=== PATIENT | female | born 1935 | race Caucasian/White ===

== ENCOUNTER 2018-07-26 09:27 | Inpatient (IN) ==
[2018-07-26 11:06] LABS: BASO# 0.01 X1000 (0.0-0.2); BASO% 0.1 % (0.0-0.8); HEMATOCRIT 40.2 % (37.0-47.0); HEMOGLOBIN 13.4 g/dL (12.0-16.0); IMM GRAN# 0.09 X1000 (0.0-0.04); IMM GRAN% 0.5 % (0.0-0.5); LYMPH# 0.29 X1000 (1.2-3.4); LYMPH% 1.7 % (20.5-51.1); MCH 33.6 PG (27-31); MCHC 33.3 g/dL (33-37); MCV 100.8 FL (81-99); MONO# 1.21 X1000 (0.11-0.59); MONO% 7.3 % (1.7-9.3); MPV 12.7 FL (7.4-10.4); NEUT# 15.08 X1000 (1.4-6.5); NEUT% 90.4 % (42.2-75.2); PLT 132 X1000 (130-400); RBC 3.99 XMIL (4.2-5.4); RDW 13.2 % (11.5-14.5); WBC 16.68 X1000 (4.8-10.8)
[2018-07-26 11:17] LABS: ALBUMIN 2.7 g/dL (3.5-5.0); CREATININE 1.7 mg/dL (0.5-0.9); POTASSIUM 4.7 mmol/L (3.5-5.1); TOTAL BILIRUBIN 0.8 mg/dL (0.20-1.00); TOTAL PROTEIN 6.4 g/dL (6.3-8.3)
[2018-07-26 11:52] LABS: LYMPHS 6 % (21-51); MONO 6 % (1-9); SEGS 88 % (42-75)
[2018-07-26] MEDS ORDERED: NS 1,000 ML IV ONE (12:10)
--- NOTE | 2018-07-26 12:27 | PROVIDER DOCUMENTATION ---
This chart was entered by Kathy Iniguez Scribe, acting as scribe for Elaine Euceda CRNP. HPI-General Adult - General Source: patient - History of Present Illness -Gen Adult Nature of Presenting Problems: 82 y/o female presents to ED with malaise, confusion, weakness, and AMS onset yesterday. Pt complains of R hip pain, but points to RLQ rather than hip. Family of pt reports she has not been drinking. Pt is alert and oriented. Location of Pain/Injury: reports: abdomen Pain Radiation: reports: no radiation Quality of Pain: reports: aching Severity: reports: moderate Onset/Duration: reports: 24 hours ago Timing: reports: still present Context/Activities at Onset: reports: none Modifying Factors: worse with: palpation Associated Symptoms: reports: malaise, weakness, other (abdominal pain, confusion, AMS) Similar Symptoms Previously?: No Recently seen or treated by another doctor?: No <Elaine Euceda - Last Filed: 07/26/18 12:26> <Mirza Wells - Last Filed: 07/26/18 21:28> - General Chief Complaint: General Adult Stated Complaint: MALAISE Time Seen by Provider: 07/26/18 11:49 Allergies/Adverse Reactions: Patient Allergies Allergy/AdvReac Type Severity Reaction Status Date / Time oxycodone HCl * Allergy Intermediate Unknown Verified 07/26/18 13:49 [From OxyContin] Home Medications: Home Medication List Medication Instructions Recorded Confirmed Last Taken Type Citalopram [Celexa] 10 mg PO DAILY 05/29/12 07/26/18 12/20/15 History PRAVAstatin [Pravachol] 40 mg PO HS 05/29/12 07/26/18 12/20/15 History Trazodone [Desyrel] 50 mg PO QHS 05/29/12 07/26/18 12/20/15 History Nateglinide [Starlix] 120 mg PO BID 09/13/15 07/26/18 12/20/15 History Memantine HCl [Namenda] 5 mg PO BID 12/20/15 07/26/18 12/20/15 History Acetaminophen with Codeine 1 ea PO Q6H PRN PRN #30 tab 07/23/18 07/26/18 Unknown Rx [Tylenol with Codeine #3 Tablet] Apixaban [Eliquis] 1 tab PO BID 07/26/18 07/26/18 Unknown History Buspirone HCl 1 tab PO BID 07/26/18 07/26/18 Unknown History Diltiazem HCl [Diltiazem ER] 1 cap PO DAILY 07/26/18 07/26/18 Unknown History Latanoprost 1 drop ORDERED HS 07/26/18 07/26/18 Unknown History Review of Systems - Adult - REVIEW OF SYSTEMS - ADULT Constitutional: reports: other (malaise, confusion, AMS). denies: chills, fever Eyes: reports: no symptoms reported Ears, Nose, Mouth & Throat: reports: no symptoms reported Cardiovascular: denies: chest pain, palpitations Respiratory: denies: cough, shortness of breath Gastrointestinal: reports: abdominal pain. denies: diarrhea, nausea, vomiting Genitourinary: reports: no symptoms reported Musculoskeletal: denies: back pain, joint pain Integumentary: reports: no symptoms reported Neurological: reports: other (weakness). denies: dizziness/vertigo, seizure Psychiatric: reports: no symptoms reported Endocrine: reports: no symptoms reported Hematologic/Lymphatic: reports: no symptoms reported Allergic/Immunologic: reports: no symptoms reported All Other Systems: Reviewed and Negative <Elaine Euceda - Last Filed: 07/26/18 12:26> Past History - Adult - PAST MEDICAL HISTORY-ADULT Review of Records: reports: Old Records Reviewed, Nursing Assessment Review, Medications Reviewed Major Childhood Illnesses: reports: denies history Cardiovascular: reports: HTN, murmur Respiratory: reports: denies history Gastrointestinal: reports: denies history Obstetrical/Gynecological: reports: other (vag delivery x 6) Genitourinary: reports: 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) Musculoskeletal: reports: denies history Neurological: reports: denies history, dementia Endocrine/Immune: reports: Diabetes, other (renal insufficiency) Other Conditions: reports: denies history - PRIOR SURGERIES/PROCEDURES Surgical/Procedure History: reports: none - IMMUNIZATION STATUS Childhood Immunizations: See Nurse Assessment Flu Vaccine: See Nurse Assessment - FAMILY HISTORY Family History: reviewed, not pertinent - SOCIAL HISTORY Smoking: quit greater than 1 year Substance Use: none/never Alcohol Use Frequency: never Living Situation: family <Elaine Euceda - Last Filed: 07/26/18 12:26> Physical Exam-General - PHYSICAL EXAM-ADULT Initial Vital Signs Reviewed: Yes - CONSTITUTIONAL General Appearance: appears well, alert, no apparent distress - EYES Eyes: PERRL/EOMI, pink conjunctivae - HEAD, EARS, NOSE, MOUTH & THROAT HENMT: normocephalic/atraumatic, moist mucous membranes, normal ENT inspection - NECK Neck: non-tender, full range of motion - RESPIRATORY Respiratory: chest non-tender, lungs clear, normal breath sounds - CARDIOVASCULAR Cardiovascular: other (irregular HR) - GASTROINTESTINAL (ABDOMEN) Abdominal Exam: normal bowel sounds, soft, tenderness (RLQ) - MUSCULOSKELETAL Back Exam: normal inspection, no CVA tenderness Extremity: normal range of motion, non-tender, normal gait - SKIN Integumentary: normal color, warm/dry - NEUROLOGIC Neurologic: grossly normal - PSYCHIATRIC Psych/Mental Status: normal mood/affect, normal thought content, normal thought process <Elaine Euceda - Last Filed: 07/26/18 12:26> - PSYCHIATRIC Psych/Mental Status: other (pt alert and oriented to self and place- hx of dementia) <Mirza Wells - Last Filed: 07/26/18 21:28> Progress - PLAN OF CARE/RESULTS Progress/Plan/Lab Results: Vital Signs - 8 hr 07/26/18 09:59 Temperature 98.6 F Pulse Rate 107 H Respiratory Rate 18 Blood Pressure 148/95 O2 Sat by Pulse Oximetry 95 Laboratory Results - last 24 hr 07/26/18 07/26/18 10:50 10:50 WBC 16.68 H RBC 3.99 L Hgb 13.4 Hct 40.2 MCV 100.8 H MCH 33.6 H MCHC 33.3 RDW Std Deviation 13.2 Plt Count 132 MPV 12.7 H Immature Gran % (Auto) 0.5 Neut % (Auto) 90.4 H Lymph % (Auto) 1.7 L [place] % (Auto) 7.3 Eos % (Auto) 0.0 Baso % (Auto) 0.1 Immature Gran # (Auto) 0.09 H Neut # (Auto) 15.08 H Lymph # (Auto) 0.29 L [place] # (Auto) 1.21 H Eos # (Auto) 0.00 Baso # (Auto) 0.01 Segmented Neutrophils 88 H Lymphocytes 6 L Monocytes 6 Sodium 133 L Potassium 4.7 Chloride 97 L Carbon Dioxide 25 Anion Gap 11 BUN 54 H Creatinine 1.7 H Estimated GFR/1.73 m2 29 BUN/Creatinine Ratio 32 Glucose 152 H Calculated Osmolality 284 Calcium 9.0 Total Bilirubin 0.80 AST 13 ALT 9 L Alkaline Phosphatase 51 Total Protein 6.4 Albumin 2.7 L Globulin 4.0 Albumin/Globulin Ratio 1.0 Orders Category Date Time Status Nursing- Obtain EKG once Care 07/26/18 11:52 Active CHEST-2 VIEWS [RAD] Stat Exams 07/26/18 11:52 Taken CBC WITH DIFF [HEME] Stat Lab 07/26/18 10:50 Completed COMPREHENSIVE METABOLIC PANEL [CHEM] Stat Lab 07/26/18 10:50 Completed TROPONIN T Stat Lab 07/26/18 10:[address] W/POSS RFLX CULT [URINALYSIS] Stat Lab 07/26/18 10:03 Uncollected 0.9% Sodium Chloride Inj [Ns] 1,000 ml Med 07/26/18 12:10 Active IV 250 mls/hr EKG [EKG] Stat Ther 07/26/18 11:52 Ordered Result Diagrams: 07/26/18 10:50 07/26/18 10:50 - CHANGE OF SHIFT REPORT (ED Provider) Report Given and Care Transferred to:: ALKA Keith Time of Transfer: 12:25 Items Pending: Labs, XRAY Results <Elaine Euceda - Last Filed: 07/26/18 12:26> - PLAN OF CARE/RESULTS Progress/Plan/Lab Results: Vital Signs - 8 hr 07/26/18 09:59 Temperature 98.6 F Pulse Rate 107 H Respiratory Rate 18 Blood Pressure 148/95 O2 Sat by Pulse Oximetry 95 Laboratory Results - last 24 hr 07/26/18 07/26/18 07/26/18 10:50 10:50 10:50 WBC 16.68 H RBC 3.99 L Hgb 13.4 Hct 40.2 MCV 100.8 H MCH 33.6 H MCHC 33.3 RDW Std Deviation 13.2 Plt Count 132 MPV 12.7 H Immature Gran % (Auto) 0.5 Neut % (Auto) 90.4 H Lymph % (Auto) 1.7 L [place] % (Auto) 7.3 Eos % (Auto) 0.0 Baso % (Auto) 0.1 Immature Gran # (Auto) 0.09 H Neut # (Auto) 15.08 H Lymph # (Auto) 0.29 L [place] # (Auto) 1.21 H Eos # (Auto) 0.00 Baso # (Auto) 0.01 Segmented Neutrophils 88 H Lymphocytes 6 L Monocytes 6 Sodium 133 L Potassium 4.7 Chloride 97 L Carbon Dioxide 25 Anion Gap 11 BUN 54 H Creatinine 1.7 H Estimated GFR/1.73 m2 29 BUN/Creatinine Ratio 32 Glucose 152 H Calculated Osmolality 284 Calcium 9.0 Total Bilirubin 0.80 AST 13 ALT 9 L Alkaline Phosphatase 51 Troponin T < 0.010 Total Protein 6.4 Albumin 2.7 L Globulin 4.0 Albumin/Globulin Ratio 1.0 Orders Category Date Time Status Nursing- Obtain EKG once Care 07/26/18 11:52 Active Saline Loc NOW Care 07/26/18 12:30 Active Straight Catheterization ORDERED Care 07/26/18 12:20 Active CHEST-2 VIEWS [RAD] Stat Exams 07/26/18 11:[address] ABDOMEN/PELVIS W/O CONTRAST [CT] Stat Exams 07/26/18 12:23 Ordered CBC WITH DIFF [HEME] Stat Lab 07/26/18 10:50 Completed COMPREHENSIVE METABOLIC PANEL [CHEM] Stat Lab 07/26/18 10:50 Completed TROPONIN T Stat Lab 07/26/18 10:[address] W/POSS RFLX CULT [URINALYSIS] Stat Lab 07/26/18 10:03 Uncollected 0.9% Sodium Chloride Inj [Ns] 1,000 ml Med 07/26/18 12:10 Active IV 250 mls/hr EKG [EKG] Stat Ther 07/26/18 11:52 Ordered Pt c/o right hip pain that radiates to back that has worsened since previous visit. Daughter of pt reports increased confusion and generalized weakness over the past 2 days. Pt is a&o and answers questions appropriately at this time- denies any recent fall/injury. Dr. Galeana saw and assessed pt- recommends Cardizem administration, sed rate, and reassessment after. Dr. Rob paged for admission consult at 1507. Spoke with Dr. Rob who requests head CT and states to order echo to be done in the ED if pt has not had one recently. Pt had an echo in February, will hold echo at this time and call Dr. Rob back when head CT results. Result Diagrams: 07/26/18 10:50 07/26/18 10:50 - REASSESSMENT Reassessment #1 Status: unchanged Reassessment #2 Time Reassessed: 15:30 (pt requests pain medicine) Status: unchanged - EKG 1 Time of EKG reading by physician:: 13:15 EKG Read and Signed by:: Osmar Galeana EKG Interpretation (*Must complete 3 of following elements*): Abnormal Rate: 104 Rhythm: Atrial Fibrillation with RVR - XRAY 1 XRAY Study: Chest ([facility] [address], [address], [place] [address] Department of Imaging Patient: SANDRA KRUEGER WADM Date: MR#: [id number] : 8ADM Status: PRE ERAcct#: [id number] Age/ Sex: 82/FRoom/Bed: Loc: P.ED Ordering Physician: Elaine Euceda Family Physician: Reason for Procedure: weakness elevated WBC Signed EXAM: CHEST-2 VIEWS HISTORY: weakness elevated WBC TECHNIQUE: Chest three views COMPARISON: 06/26/2017 FINDINGS: The lungs are well expanded. The heart is mildly enlarged. The vessels are not distended. There are no infiltrates. No pleural effusions. IMPRESSION: No pneumonia. Electronically signed by Nathan Bullock 07/26/2018 12:22 PM 07/26/18 1222 Interpreting Physician: Nathan Bullock MD Dictated Date/Time: 07/26/18 1222 cc: Elaine Euceda;) - CT/MRI 1 CT Study: Head ([facility] [address], [address], [place] [address] Department of Imaging Patient: SANDRA KRUEGER WADM Date: 09/12#: [id number] : 1935DM Status: REG [facility]#: [id number] Age/ Sex: 82/FRoom/Bed: Loc: P.ED Ordering Physician: Mirza Wells Family Physician: Blayne Rob MD Reason for Procedure: confusion, weakness Signed EXAM: CT HEAD W/O CONTRAST HISTORY: confusion, weakness TECHNIQUE: CT head without contrast COMPARISON: 12/20/2015 FINDINGS: No parenchymal hemorrhage. No epidural or subdural hematoma. No subarachnoid hemorrhage. Mild atrophy. No mass identified on this noncontrasted exam. No hydrocephalus. No sinus opacification. There is a 7 mm calcification along the anterior right parietal bone which was present on the prior exam and is unchanged. IMPRESSION: No hemorrhage. This exam was performed using automated exposure control, adjustment of mA or kV according to patient size, and/or use of iterative reconstruction technique. Electronically signed by Nathan Bullock 07/26/2018 5:45 PM 07/26/18 1748 Interpreting Physician: Nathan Bullock MD Dictated Date/Time: 07/26/18 1745 cc: Mirza Wells; Blayne Rob MD) - CONSULTS/PCP/HOSPITALIST Notification #1 *Consult/PCP/Hospitalist*: Dr. Rob Time Discussed: 16:13 Consult Disposition: Will see in ED, Admit <Mirza Wells - Last Filed: 07/26/18 21:28> Departure - Departure Date of Disposition Decision: 07/26/18 Time of Disposition Decision: 12:27 <Elaine Euceda - Last Filed: 07/26/18 12:26> - Departure Time of Disposition Decision: 16:13 Certified Medical Emergency: Emergent - Critical Care Note This patient required my direct & personal management of CC.: No <Mirza Wells - Last Filed: 07/26/18 21:28> - Departure DIAGNOSIS: Generalized weakness Disposition: ADMITTED INPATIENT 09 Condition: Stable Referrals and Follow-Ups: Blayne Rob MD [Primary Care Provider] - Attestation - Physician/ BOOKER Attestation Patient care was provided by Advanced Practice Provider:: Yes Advanced Practice Provider:: Elaine Euceda Advanced Practice Provider documentation review:: The Mid-level provider documentation, treatment plan and medical decision making was reviewed by the physician who agrees with all treatment and medical decision making by the MLP. The physician spent face to face time with patient:: No Advanced Practice Provider documentation review:: Supervising physician onsite and consulted in the evaluation and care of this patient. The physician did not have a face to face encounter with the patient. <Elaine Euceda - Last Filed: 07/26/18 12:26> - Physician/ BOOKER Attestation The physician spent face to face time with patient:: Yes (Dr. Galeana) Advanced Practice Provider documentation review:: Supervising physician onsite and consulted in the evaluation and care of this patient. The physician did have a face to face encounter with the patient. <Mirza Wells - Last Filed: 07/26/18 21:28> This chart was documented by the indicated scribe, (Kathy Iniguez Scribe) and accurately reflects the services I performed and decisions made by me, Elaine Euceda CRNP, as attested by the provider's signature.
--- NOTE | 2018-07-26 13:10 | Diag Imaging Result Doc PS360 ---
EXAM: CT ABDOMEN/PELVIS W/O CONTRAST 07/26/2018 HISTORY: rlq abd pain TECHNIQUE: This exam was performed using automated exposure control, adjustment of mA or kV according to patient size, and/or use of iterative reconstruction technique. COMMENT: The current examination is compared with the previous study of 05/09/2017. There is some platelike atelectasis in both lower lobes which is actually somewhat improved since the previous examination. There has been previous cholecystectomy. The adrenal glands are slightly hyperplastic in appearance. The spleen is not enlarged. There is extensive arteriosclerosis. There are dense calcifications in the proximal renal arteries and calcifications are present in the lobar arteries particularly on the left side. There is dense calcification in the superior mesenteric artery. There is some subcutaneous edema generally particularly over the left flank. There is stool and gas in the colon. The small bowel is not particularly distended. The common bile duct appears somewhat distended but there are no definite stones. This measures is much as 19 mm in diameter. Compared to the previous examination this is increased from 16 mm. The appendix is not distended. The urinary bladder is slightly distended which was not the case previously. There are no pelvic masses. There is diverticulosis particularly in the sigmoid colon no definite evidence of acute diverticulitis is present. There is no significant free fluid. IMPRESSION: Anasarca. Diverticulosis coli. Slightly distended urinary bladder. Mild constipation. Electronically signed by Ortiz Shelley 07/26/2018 1:08 PM
[2018-07-26 13:12] LABS: BILIRUBIN URINE NEGATIVE (NEGATIVE); BLOOD URINE 4+ (NEGATIVE); CLARITY SL. CLOUDY (CLEAR); GLUCOSE URINE NEGATIVE (NEGATIVE); KETONE URINE TRACE mg/dL (NEGATIVE); LEUKOCYTES URINE 2+ (NEGATIVE); NITRITE URINE NEGATIVE (NEGATIVE); PROTEIN URINE 2+(100 mg/dL) mg/dL (NEGATIVE); UROBILINOGEN URINE 4 mg/dL
[2018-07-26 13:20] LABS: COLOR AMBER; URINE BACTERIA 3+ /HFP; URINE EPITHELIAL CELLS >10 /HPF (<10); URINE RBC 20-40 /HPF (<10); URINE SOURCE CLEAN CATCH; URINE WBC 20-40 /HPF (<10)
[2018-07-26] MEDS ORDERED: CARDIZEM IV ONE (13:48)
[2018-07-26] MEDS ORDERED: ROCEPHIN 1 GM in NS 50 ML IV ONE (13:48)
--- NOTE | 2018-07-26 14:03 | EKG Report ---
Test Performed on : 07/26/2018 1:13:37 PM Test Reason : CP Blood Pressure : / mmHG Vent. Rate : 104 BPM Atrial Rate : 113 BPM P-R Int : 000 ms QRS Dur : 078 ms QT Int : 336 ms P-R-T Axes : 000 026 062 degrees QTc Int : 441 ms Atrial fibrillation. with rapid ventricular response. Cannot rule out Anterior infarct , age undetermined Abnormal ECG When compared with ECG of 13-JUN-2018 09:43, (Unconfirmed) Nonspecific T wave abnormality, improved in Inferior leads Unconfirmed Result
[2018-07-26] MEDS ORDERED: MORPHINE IV ONE (15:35)
[2018-07-26] MEDS ORDERED: ZOFRAN IV ONE (15:35)
--- NOTE | 2018-07-26 17:48 | Diag Imaging Result Doc PS360 ---
EXAM: CT HEAD W/O CONTRAST HISTORY: confusion,weakness TECHNIQUE: CT head without contrast COMPARISON: 12/20/2015 FINDINGS: No parenchymal hemorrhage. No epidural or subdural hematoma. No subarachnoid hemorrhage. Mild atrophy. No mass identified on this noncontrasted exam. No hydrocephalus. No sinus opacification. There is a 7 mm calcification along the anterior right parietal bone which was present on the prior exam and is unchanged. IMPRESSION: No hemorrhage. This exam was performed using automated exposure control, adjustment of mA or kV according to patient size, and/or use of iterative reconstruction technique. Electronically signed by Nathan Bullock 07/26/2018 5:45 PM
[2018-07-26 19:47] LABS: BILIRUBIN URINE NEGATIVE (NEGATIVE); BLOOD URINE 2+ (NEGATIVE); CLARITY SL. CLOUDY (CLEAR); COLOR AMBER; GLUCOSE URINE NEGATIVE (NEGATIVE); KETONE URINE TRACE mg/dL (NEGATIVE); LEUKOCYTES URINE NEGATIVE (NEGATIVE); NITRITE URINE NEGATIVE (NEGATIVE); PROTEIN URINE 2+(100 mg/dL) mg/dL (NEGATIVE); URINE SOURCE CATH; UROBILINOGEN URINE 1 mg/dL
[2018-07-26 19:48] LABS: URINE BACTERIA NEGATIVE /HFP; URINE EPITHELIAL CELLS <10 /HPF (<10); URINE RBC <10 /HPF (<10); URINE WBC <10 /HPF (<10)
[2018-07-26 19:49] LABS: URINE CAST NONE SEEN /LPF; URINE CRYSTAL NONE SEEN /HPF; URINE YEAST NONE SEEN /HPF
[2018-07-26] MEDS ORDERED: TYLENOL WITH CODEINE #3 PO ONE (20:46)
[2018-07-26] MEDS ORDERED: NS 2,000 ML IV ONE (20:47)
[2018-07-26] MEDS ORDERED: NS 1,000 ML ONE (21:18)
[2018-07-27] MEDS ORDERED: TYLENOL PO PRN (01:10)
--- NOTE | 2018-07-27 14:35 | HISTORY AND PHYSICAL ---
HISTORY OF PRESENT ILLNESS: The patient is an 82-year-old female who presented to the emergency room complaining of malaise, confusion, weakness, altered mental status, mostly the complaints are family. She has been complaining of hip pain and points to her right lower quadrant. She had this the day prior, came to the ER, had a CT of the pelvis and hip, and they were negative other than significant degenerative arthritis of the lumbar spine, which could contribute to her problems with the pain in those areas that she describes, her lower abdomen and her back. She describes it as an aching, it has been going on at least 24 hours, no injuries. She is just generally malaised, weak, and has seemingly per family been more confused than usual, which is new for her. In the ER, she was evaluated and subsequently admitted. ALLERGIES: She has a history of allergy to oxycodone. HOME MEDICATIONS: Celexa 10 for depression, pravastatin 40 for dyslipidemia, trazodone 50 for sleep, Starlix which she has been taking for a while 120 b.i.d. controlling her sugar, Namenda for the mild dementia 5 mg b.i.d., she takes p.r.n. Tylenol with codeine, she is on Eliquis 1 tablet p.o. b.i.d., buspirone 1 tablet b.i.d., diltiazem 1 capsule daily, and some eye drops. REVIEW OF SYSTEMS: The patient just generally denies fever or chills. She has been somewhat confused and altered with malaise. We postulate this may be from steroids that were given the other day for the pain in her lower back and right hip. Eyes: No change in her visual acuity, no irritation, no drainage, no change in visual kaba. Ears, nose, and throat: Denies pharyngitis, otitis, or sinusitis. Cardiovascular: She denies chest pain, palpitations, has some edema, no PND, orthopnea, claudication, exertional dyspnea. Respiratory: Denies cough, shortness of breath. No hemoptysis. No significant amount of phlegm. Gastrointestinal: She just has diarrhea unassociated with nausea, vomiting, melena, hematochezia. Genitourinary: No dysuria, polyuria, or pyuria. She has had some UTIs in the past. Musculoskeletal: Low back pain, the only problem. Skin: No particular rashes or lesions. Neurologic: she is generally weak and a little bit confused per family. Psychiatric: No hallucinations. No SI, HI issues. Endo: No polyuria or polydipsia, polyphagia. Hematological/lymphatic: She is on a blood thinner but denies any history of bleeding from the same. Allergies: No history of asthma. PAST MEDICAL HISTORY: Surgically, she has had no procedures. Cardiovascular past medical history: She has a history of hypertension and murmur. Respiratory: Denies any history of respiratory problems, COPD, and asthma. Gastrointestinal: Denies any history of significant bleeding, ulcer disease, diverticular disease, reflux disease. No liver disease. INVENTORY CONTROL COORDINATOR: Six deliveries. Genitourinary: She has some issues with her kidneys that have been attributed to diabetes. Musculoskeletal: Negative neuromuscular. History of dementia. Endo: She has some mild renal insufficiency. FAMILY HISTORY: Not pertinent. She is a distant exsmoker. Never drinks. No substance abuse. PHYSICAL EXAMINATION: HEENT: On admission head was normocephalic. She was alert, oriented, and paid attention and recognized me. Eyes: PERRL. EOMs intact. SC clear. Fundi benign. Nares patent. Oropharynx negative. NECK: Midline trachea. No lymphadenopathy. Neck is supple. No thyromegaly. RESPIRATORY: Chest wall is nontender. Lungs are generally clear, bilateral breath sounds. CARDIOVASCULAR: She had an irregular heart rate and rhythm, faint 1/6 murmur. ABDOMEN: Protuberant, normal bowel sounds, and some tenderness in the right lower quadrant. MUSCULOSKELETAL: No CVA tenderness. Normal inspection. EXTREMITIES: Normal range of motion. Nontender. Normal gait. SKIN: Warm and dry, no lesions. NEUROLOGIC: No focal neurologic deficits. PSYCHIATRIC: Normal mood and affect. Normal thought content. Normal thought process. The patient was alert and oriented to self and place, in spite of her history of dementia. VITAL SIGNS: On admission her temperature was 98.6. Pulse 107. Respiratory rate 18. BP 148/95. LABORATORY: On admission: White count 16,680, she got steroids in the last couple of days, so I am sure that is what is going on there, her hematocrit is 40.2, MCV is a little big, platelet count 132,000. Her differential was left shift as you would expect with steroids, her lymphocyte count was only 1.7, so I am sure that is what is going on there. Sodium 133, potassium 4.7, chloride 97, CO2 25, BUN 54, creatinine 1.7, some prerenal dehydration perhaps. Her estimated GFR was 29. Glucose 152. LFTs were normal. Albumin 2.7, total protein 6.4. She got saline at 250 mL per hour, brought on by her BUN to creatinine ratio. She ended up having a CT of the abdomen and pelvis. The family thinks she cannot walk very well and is a little bit confused. EKG was abnormal, she had atrial fibrillation with suspected rapid ventricular rate. Chest x-ray: There are no infiltrates, no pleural effusions, no pneumonia. She had a CT of the head: No hemorrhage, there was no subarachnoid hemorrhage, mild atrophy, no mass identified on this noncontrasted exam, no hydrocephalus, no sinus issues. In the past, on the scan of the belly they saw some anasarca, in the past she has had some pericardial effusions that were an issue. So, she was admitted to the hospital. Her medication list has been described previously. She was given Zofran, she was given Tylenol, she got 2 liters of sodium chloride, codeine, she was placed on ceftriaxone 1 gram, diltiazem 10 IV initially for rapid heart rate. She was given morphine 2 IV. Her reports not included so far are the abdomen and pelvis and the exam was read as anasarca, diverticulosis coli, slightly distended urinary bladder, mild constipation. Previous scan of her abdomen did not show anything significant. Compared this exam to 05/09/2017 exam, which showed some plate like atelectasis in both lower lobes, that actually is improved since the previous exam, status post cholecystectomy, hyperplastic adrenal gland in appearance, spleen not enlarged, there is extensive atherosclerosis, dense calcifications proximal renal arteries , and calcification present in the lobar arteries, particularly on the left side, small bowel is not particularly distended, bowel duct appears somewhat distended, there are no definite stones, it measures 19 mm in diameter, compared to the previous exam, this is increased from 16 mm, the appendix is not distended, urine bladder slightly distended, this was not the case previously, there are no pelvic masses, there is diverticulosis in the sigmoid colon, but no definite acute diverticula. She got some medicine in the ER, some ceftriaxone, and was admitted upstairs, and we will watch her. She has a history of chronic obstructive pulmonary disease. She has a history of dyslipidemia. She has had problems with chronic obstructive pulmonary disease and shortness of breath and obesity, chronic venous disease as well. Her current medicines as best we can tell from our data shows she is on BuSpar 10 b.i.d., Cartia 120 daily, Eliquis 2.5 one b.i.d. we will have to clarify that, she has Lexapro 10, Namenda 10, Starlix 120 b.i.d., p.r.n. q.6-8, albuterol ipratropium breathing treatments 4 times a day p.r.n., pravastatin 40, and trazodone 50. She is status post cholecystectomy, left knee replacement, right knee replacement, bilateral wrist surgery, eye surgery x3, cataract removal with intraocular lens bilaterally. MEDICAL PROBLEMS: 1. Lipid disorder. 2. Type 2 diabetes. 3. Acute renal failure and renal insufficiency. 4. History of anemia. 5. Restless leg syndrome. 6. Both her sons have had head and neck cancers. cc: Blayne Rob MD MTDD
--- NOTE | 2018-07-27 15:36 | ECHO REPORT ---
ORDER DATE: 07/27/2018 ECHOCARDIOGRAM: ECHOCARDIOGRAPHIC MEASUREMENTS: 1. Interventricular septum 1.3. 2. Left ventricular posterior wall 1.3. 3. Diastolic diameter 3.4. 4. Left atrium 4.8. 5. Aorta 3.1 SUMMARY: 1. Technically suboptimal study. Poor acoustic window. 2. There is moderate biatrial enlargement. 3. Normal left ventricular cavity size. Concentric left ventricular hypertrophy. Estimated ejection fraction of 65%. 4. Aortic valve leaflets are calcified. Tricuspid valve was normal. Mitral valve was normal. Pulmonic valve was normal. 5. The peak velocity across the aortic valve was 2.3 m/sec. There is mild aortic stenosis with mild aortic regurgitation. 6. There is mitral regurgitation which is mild. 7. Mild tricuspid regurgitation. Peak velocity across the tricuspid valve was 3 m/sec. Pulmonary artery systolic pressure of 50 mmHg. 8. There is mainly posterior pericardial effusion measuring 1.5 cm anteriorly. There is trace pericardial effusion. There is no evidence of tamponade. There is no obvious intracardiac mass or thrombus seen. cc: MD Blayne Bain MD
[2018-07-27] MEDS ORDERED: LASIX IV ONE (20:08)
[2018-07-27] MEDS ORDERED: PRAVACHOL PO SCH (21:00)
[2018-07-27] MEDS ORDERED: DESYREL PO SCH (21:30)
[2018-07-27] MEDS: ELIQUIS PO SCH (22:18)
--- NOTE | 2018-07-28 05:18 | CARDIOLOGY CONSULTATION ---
DATE: 07/27/2018 CHIEF COMPLAINT ON PRESENTATION: Diffuse weakness and back pain. HISTORY OF PRESENT ILLNESS: Ms. Allen is an 82-year-old female with a history of chronic pericardial effusion. She presented with a generalized malaise and weakness that has been ongoing since Tuesday. Apparently Tuesday, she was in her usual state of health and able to get around with a walker. On Tuesday, she woke up and just was diffusely weak in her upper and lower extremities. No shortness of breath. No orthopnea. She denies any overt syncope. In addition, she has had some generalized nausea and has had very little oral intake recently. She was taken to the ER on Tuesday with complaints of back pain and was treated for that and sent home. She has really had no improvement since then and re-presented for further evaluation. PAST MEDICAL HISTORY: Significant for: 1. Hypertension. 2. Chronic pericardial effusion as far back as May 2017. 3. Atrial fibrillation. 4. Hyperlipidemia. 5. Diabetes. SOCIAL HISTORY: She lives with family. She does not currently smoke. FAMILY HISTORY: Hypertension. REVIEW OF SYSTEMS: A 10-system review of systems is negative except for those things mentioned in the HPI. PHYSICAL EXAMINATION: Vital Signs: She is afebrile. Heart rate 84, blood pressure 150/73. Systolics during this hospitalization have been anywhere from the 120s to the once 170s or so. General: She is in no acute distress. She is lying in bed. She is not complaining of any shortness of breath. She is currently eating yogurt. HEENT: Oropharynx moist. Poor dentition. Eye examination shows pink conjunctivae and white sclerae. Neck: Examination shows no obvious thyromegaly or thyroid tenderness. Cardiovascular: She sounds to be in a mildly irregular rhythm. There are no obvious murmurs present. She has warm and well perfused extremities. Again, no edema. Chest: Exam sounds relatively clear, but is a somewhat difficult exam. She has poor inspiratory effort. Abdomen: Soft, nontender. No obvious organomegaly. Skin: Exam is warm and dry throughout without any rashes. Neurological: She is moving all extremities well. She has no lateralizing deficits. Psychiatric: She is alert, oriented, and pleasant. She has a normal mood and affect. PERTINENT DATA: The patient's EKG shows sinus rhythm, rate of 104 beats per minute. She had an echocardiogram, which demonstrated an ejection fraction of 65%. Mild aortic stenosis. Mild left ventricular hypertrophy. Mild mitral regurgitation. Pericardial effusion noted with no evidence of any tamponade features. She had an abdomen and pelvis CT demonstrating anasarca and slight distended urinary bladder. LABORATORY DATA: White count 16.6, hematocrit 40, platelet count 132,000. She has a left shift. Sodium 133, potassium 4.7, BUN 54, creatinine 1.7. Albumin is 2.7. Urinalysis shows 2+ blood, 2+ protein, less than 10 WBCs, no bacteria. ASSESSMENT: Ms. Allen is an 82-year-old female who presented with a generalized failure to thrive over the last 4 to 5 days. She has chronic atrial fibrillation. PLAN: Presently, her effusion does not seem to be any worse than it has been in the past. Certainly, there do not appear to be any sort of tamponade type features. Her echo certainly seems consistent with what she has had in the past. Her RV systolic pressure in February was 92, suggesting severe pulmonary hypertension. It was measured at 50, at the time of this echo. Certainly, we could consider performing some diuresis as she is noted to have anasarca on her abdomen and pelvis CT. She has a notable significant hypoalbuminemia. I will try giving her a 1- time dose of Lasix at 40 mg IV and discussed the case with Dr. Rob. cc: MD Blayne Collins MD
[2018-07-28 07:45] LABS: BASO# 0.02 X1000 (0.0-0.2); BASO% 0.1 % (0.0-0.8); CALCIUM 8.5 mg/dL (8.8-10.2); CREATININE 1.2 mg/dL (0.5-0.9); EOS# 0.01 X1000 (0.0-0.7); EOS% 0.1 % (0.0-10.0); HEMATOCRIT 42.8 % (37.0-47.0); HEMOGLOBIN 14.3 g/dL (12.0-16.0); IMM GRAN# 0.08 X1000 (0.0-0.04); IMM GRAN% 0.5 % (0.0-0.5); LYMPH# 0.33 X1000 (1.2-3.4); LYMPH% 2.1 % (20.5-51.1); MCH 32.8 PG (27-31); MCHC 33.4 g/dL (33-37); MCV 98.2 FL (81-99); MONO# 1.29 X1000 (0.11-0.59); MONO% 8.2 % (1.7-9.3); MPV 12.7 FL (7.4-10.4); NEUT# 13.93 X1000 (1.4-6.5); PLT 121 X1000 (130-400); POTASSIUM 4.1 mmol/L (3.5-5.1); RBC 4.36 XMIL (4.2-5.4); RDW 12.9 % (11.5-14.5); WBC 15.66 X1000 (4.8-10.8)
[2018-07-28 08:03] LABS: BANDS 2 % (0-1); LYMPHS 1 % (21-51); MONO 4 % (1-9); SEGS 93 % (42-75)
[2018-07-28] MEDS: CELEXA PO SCH (08:07)
[2018-07-28] MEDS: ELIQUIS PO SCH ×2 (08:07→20:43)
[2018-07-28] MEDS: CARDIZEM CD PO SCH (08:07)
[2018-07-28] MEDS: STARLIX PO SCH ×2 (08:09→17:04)
[2018-07-28] MEDS: LASIX IV SCH (13:17)
[2018-07-28] MEDS ORDERED: LEVAQUIN 500 MG in NS 100 ML IV SCH (16:30)
[2018-07-28 16:33] LABS: BLOOD TYPE ARTERIAL; HCO3-(ACT) 26.4 mmoll (20.0-26.0); METHB 1.2 % (0.0-1.5); O2(CT) 18.9 mL/dL (15.0-23.0); O2HB 94.4 % (95.0-99.0); PCO2(98.6) 36 mmHg (35-45); PO2(98.6) 83 mmHg (60-100); SAMPLE BLOOD; SAO2 97.5 % (95.0-100.0); THB 14.2 g/dL (11.5-17.4); pH(98.6) 7.46 (7.35-7.45)
[2018-07-28 16:36] LABS: MODALITY CANNULA
[2018-07-28] MEDS: XALATAN 0.005% OPH SOLN BOTH EYES SCH (20:43)
[2018-07-28] MEDS ORDERED: ELIQUIS PO SCH (21:00)
--- NOTE | 2018-07-29 06:25 | EKG Report ---
Test Performed on : 07/29/2018 05:46:48 AM Test Reason : ROUTINE Blood Pressure : / mmHG Vent. Rate : 110 BPM Atrial Rate : 136 BPM P-R Int : 000 ms QRS Dur : 082 ms QT Int : 346 ms P-R-T Axes : 000 011 047 degrees QTc Int : 468 ms Atrial fibrillation. with rapid ventricular response. Cannot rule out Anterior infarct (cited on or before 26-JUL-2018) Abnormal ECG When compared with ECG of 26-JUL-2018 13:13, (Unconfirmed) No significant change was found Confirmed by Blayne Rob MD ([id number]) on 07/30/2018 8:10:40 AM
[2018-07-29 07:12] LABS: CALCIUM 8.6 mg/dL (8.8-10.2); MAGNESIUM 1.7 mg/dL (1.5-2.7); POTASSIUM 3.6 mmol/L (3.5-5.1)
[2018-07-29] MEDS: LASIX IV SCH (08:12)
[2018-07-29] MEDS: CELEXA PO SCH (08:13)
[2018-07-29] MEDS: CARDIZEM CD PO SCH (08:13)
[2018-07-29] MEDS: ELIQUIS PO SCH ×2 (08:13→22:40)
[2018-07-29] MEDS: STARLIX PO SCH ×2 (08:15→17:20)
[2018-07-29] MEDS: DUONEB (A & A) INH PRN ×3 (12:32→20:56)
[2018-07-29 12:37] LABS: HEMATOCRIT 40.6 % (37.0-47.0); HEMOGLOBIN 13.7 g/dL (12.0-16.0); MCH 33.2 PG (27-31); MCHC 33.7 g/dL (33-37); MCV 98.3 FL (81-99); MPV 12.6 FL (7.4-10.4); RBC 4.13 XMIL (4.2-5.4); RDW 12.9 % (11.5-14.5); WBC 15.83 X1000 (4.8-10.8)
--- NOTE | 2018-07-29 12:39 | Diag Imaging Result Doc PS360 ---
EXAM: CHEST-PORTABLE 07/29/2018 HISTORY: labored breathing TECHNIQUE: AP portable at 1224 COMMENT: There is atelectasis in the left upper lobe which was not present on 07/26/2018. Otherwise there has been no significant change. IMPRESSION: Platelike atelectasis in the left upper lobe. Electronically signed by Ortiz Shelley 07/29/2018 12:37 PM
[2018-07-29 12:54] LABS: ALBUMIN 1.8 g/dL (3.5-5.0); CALCIUM 8.6 mg/dL (8.8-10.2); CREATININE 1.2 mg/dL (0.5-0.9); POTASSIUM 3.6 mmol/L (3.5-5.1); TOTAL BILIRUBIN 0.7 mg/dL (0.20-1.00); TOTAL PROTEIN 5.4 g/dL (6.3-8.3)
--- NOTE | 2018-07-29 13:18 | EKG Report ---
Test Performed on : 07/29/2018 12:18:32 PM Test Reason : labored breathing Blood Pressure : / mmHG Vent. Rate : 092 BPM Atrial Rate : 136 BPM P-R Int : 000 ms QRS Dur : 084 ms QT Int : 364 ms P-R-T Axes : 000 098 030 degrees QTc Int : 450 ms Atrial fibrillation. Rightward axis Possible Anterior infarct (cited on or before 26-JUL-2018) Abnormal ECG When compared with ECG of 29-JUL-2018 05:46, (Unconfirmed) Questionable change in QRS axis Confirmed by Blayne Rob MD ([id number]) on 07/30/2018 8:10:23 AM
[2018-07-29] MEDS ORDERED: DUONEB (A & A) INH ONE (13:23)
[2018-07-29 13:36] LABS: CREATININE 1.2 mg/dL (0.7-1.2)
[2018-07-29 13:49] LABS: UR CREATININE 30.7 mg/dL (11-20); UR CREATININE TOTAL 675.4 mg/24 (600-1600); UR PROTEIN 35.3 mg/dL
[2018-07-29] MEDS: ZOSYN 3.375 GM in NS 50 ML IV SCH ×2 (17:19→22:39)
--- NOTE | 2018-07-29 17:22 | PROGRESS NOTE ---
DATE: 07/29/2018 SUBJECTIVE: This is an 82-year-old lady admitted with failure to thrive. She is still in bed. She is not speaking very much. Sleeping. Breathing kind of quickly. OBJECTIVE: Vital Signs: She is afebrile. Temperature is 99 axillary. Pulse is 97, respiratory rate 18, blood pressure 149/78, O2 saturation 100%. Cardiovascular: She does not appear to have much fluid. Abdomen: Her belly is soft. Extremities: Negative. LABORATORY DATA: On July 28, she had a white count of 15,660. I still think it is secondary to steroids. Her hematocrit was 42.8. Platelet count was 121. She also had a sodium of 132, potassium of 4.1, chloride of 98. CO2 was 23, BUN 44, creatinine 1.2. GFR estimated at 43. Calcium 8.5, magnesium 2. BNP 19,414. Urine for clearance was collected on this particular day as well. Microbiology: She grew out E coli sensitive to Levaquin. PLAN: I think she needs some physical therapy. She seems to be crunched up in the bed the whole time. Family is here visiting. We discussed her case at length. cc: Blayne Rob MD
--- NOTE | 2018-07-29 17:28 | PROGRESS NOTE ---
DATE: 07/29/2018 SUBJECTIVE: Seems to be a little better today. Seems to be talking. Still easy to fall asleep. Still seemingly tachypneic. IMAGING: Her chest x-ray showed no changes other than presumed atelectasis in the left upper lobe which was not present on July 26. PLAN: We decided to do acetylcysteine and nebulizer treatments to try to open up her bronchus. She also has a rash that developed after we gave her the Levaquin the night before for her UTI/E coli/possible pneumonia, and I am afraid we may have to change that. cc: Blayne Rob MD
[2018-07-29] MEDS: TYLENOL WITH CODEINE #3 PO PRN (18:43)
[2018-07-29] MEDS: MUCOMYST 20% INH SCH (20:56)
[2018-07-29] MEDS: XALATAN 0.005% OPH SOLN BOTH EYES SCH (22:10)
[2018-07-29] MEDS ORDERED: LASIX IV ONE (22:39)
--- NOTE | 2018-07-29 23:33 | PROGRESS NOTE ---
DATE: 07/29/2018 SUBJECTIVE: She is responsive and indicates that she has diffuse aches. OBJECTIVE: Vital signs: Blood pressure 123/99, heart rate 109, respiratory rate 28, oxygen saturation 93% to 95% on nasal cannula oxygen. Neck: Jugular venous distention is difficult to appreciate. Chest: Auscultation of the chest reveals diminished breath sounds in the bases bilaterally. She demonstrates prolonged expiratory phase, and air movement seems to be significantly reduced. Cardiac exam: Reveals an irregular rate and rhythm without appreciable murmur or gallop. Extremities: There is no evidence of peripheral edema. LABORATORY DATA: Includes a white blood cell count of 15.83, hematocrit 40.6, hemoglobin 13.7, platelet count 121,000. Sodium 131, potassium 3.6, chloride 96, carbon dioxide 26, BUN 41, creatinine 1.2, glucose 204, albumin 1.8. Urinalysis is noteworthy for significant proteinuria. Echocardiography reported to demonstrate chronic pericardial effusion without evidence of tamponade. Left ventricular ejection fraction reportedly 65% with left ventricular hypertrophy of mild severity reported. Moderate pulmonary hypertension reported with systolic PA pressure of 50 mmHg. Chest x-ray performed today reports some plate-like atelectasis in the left upper lobe but no acute infiltrates. Urinalysis also noteworthy for significant leukocytes in the urine. Urine culture reports greater than 100,000 colony forming units per mL growth of Escherichia coli which is pansensitive for the most part with intermediate sensitivity to ampicillin. IMPRESSION: 1. Progressive respiratory difficulty. Consider possibility of urosepsis. 2. Chronic pericardial effusion without evidence of tamponade. Left ventricular systolic function preserved. 3. Diabetes mellitus. 4. Hypertension. 5. Atrial fibrillation. 6. Hyperlipidemia. RECOMMENDATIONS: 1. Patient's course suspicious for urosepsis. Will give additional single dose of intravenous gentamicin. 2. Patient's condition and prognosis discussed with her daughter at bedside. Her condition is very guarded, and she seems to be very ill. The daughter reports the patient has a living will and does not want resuscitative measures in the event of a cardiac arrest. The patient's grandchildren have power of city attorney for healthcare matters. Arrangements will be made to try and reach them and establish a DNR order. cc: MD Blayne Mix MD
[2018-07-30] MEDS: GENTAMICIN 100 MG/NS 100 MG/100 ML IVPB IV ONE ×2 (01:41→06:50)
[2018-07-30] MEDS ORDERED: GENTAMICIN 100 MG/NS 100 MG/100 ML IVPB IV ONE (03:00)
[2018-07-30] MEDS: ZOSYN 3.375 GM in NS 50 ML IV SCH (06:59)
[2018-07-30] MEDS ORDERED: BENADRYL IV ONE (07:45)
[2018-07-30] MEDS: MUCOMYST 20% INH SCH ×2 (08:27→19:55)
[2018-07-30] MEDS: DUONEB (A & A) INH SCH ×5 (08:27→22:30)
[2018-07-30] MEDS: MERREM 1 GM in NS 50 ML IV SCH ×2 (09:03→20:34)
[2018-07-30] MEDS: STARLIX PO SCH ×2 (09:12→16:00)
[2018-07-30] MEDS: ELIQUIS PO SCH ×2 (09:16→20:38)
[2018-07-30] MEDS: CELEXA PO SCH (09:16)
[2018-07-30] MEDS: LASIX IV SCH (09:16)
[2018-07-30] MEDS: CARDIZEM CD PO SCH (09:16)
[2018-07-30] MEDS: TYLENOL WITH CODEINE #3 PO PRN ×2 (11:56→18:15)
[2018-07-30] MEDS ORDERED: ZOFRAN IV PRN (19:12)
--- NOTE | 2018-07-30 20:06 | Diag Imaging Result Doc PS360 ---
EXAM: CHEST-PORTABLE 07/30/2018 HISTORY: Shortness of Breath TECHNIQUE: AP portable at 1943 COMMENT: The inspiration is suboptimal. There is some apparent atelectasis in both lung bases and the perihilar portion of the right upper lobe. This was not present on 07/29/2018. IMPRESSION: Atelectasis versus pneumonia. Electronically signed by Ortiz Shelley 07/30/2018 8:02 PM
[2018-07-30 20:22] LABS: SAMPLE BLOOD
[2018-07-30 20:23] LABS: BE 2.5 mmoll (-3.0-3.0); BLOOD TYPE ARTERIAL; HCO3-(ACT) 26.8 mmoll (20.0-26.0); METHB 0.8 % (0.0-1.5); O2(CT) 16.5 mL/dL (15.0-23.0); O2HB 94.7 % (95.0-99.0); PO2(98.6) 83 mmHg (60-100); SAO2 97.2 % (95.0-100.0); THB 12.3 g/dL (11.5-17.4); pH(98.6) 7.32 (7.35-7.45)
[2018-07-30 20:28] LABS: ALLEN TEST YES; MODALITY CANNULA
[2018-07-30 20:32] LABS: PCO2(98.6) 58 mmHg (35-45)
[2018-07-30] MEDS: XALATAN 0.005% OPH SOLN BOTH EYES SCH (20:48)
[2018-07-30 20:53] LABS: BASO# 0.09 X1000 (0.0-0.2); BASO% 0.4 % (0.0-0.8); EOS# 0.06 X1000 (0.0-0.7); EOS% 0.3 % (0.0-10.0); HEMATOCRIT 36.6 % (37.0-47.0); HEMOGLOBIN 11.9 g/dL (12.0-16.0); IMM GRAN# 0.42 X1000 (0.0-0.04); IMM GRAN% 1.9 % (0.0-0.5); LYMPH# 1.04 X1000 (1.2-3.4); LYMPH% 4.8 % (20.5-51.1); MCH 32.7 PG (27-31); MCHC 32.5 g/dL (33-37); MCV 100.5 FL (81-99); MONO# 1.86 X1000 (0.11-0.59); MONO% 8.5 % (1.7-9.3); MPV 12.7 FL (7.4-10.4); NEUT# 18.34 X1000 (1.4-6.5); NEUT% 84.1 % (42.2-75.2); PLT 127 X1000 (130-400); RBC 3.64 XMIL (4.2-5.4); RDW 13.3 % (11.5-14.5); WBC 21.81 X1000 (4.8-10.8)
[2018-07-30] MEDS: BENADRYL CREAM TOP PRN (21:05)
[2018-07-30 21:21] LABS: ALBUMIN 1.9 g/dL (3.5-5.0); POTASSIUM 3.9 mmol/L (3.5-5.1); TOTAL BILIRUBIN 0.7 mg/dL (0.20-1.00); TOTAL PROTEIN 4.5 g/dL (6.3-8.3)
[2018-07-30 21:22] LABS: BANDS 4 % (0-1); LYMPHS 4 % (21-51); MONO 6 % (1-9); SEGS 83 % (42-75)
[2018-07-30 21:23] LABS: OVALOCYTES OCCASIONAL; POIKILOCYTOSIS OCCASIONAL; VACUOLES OCCASIONAL
[2018-07-30] MEDS ORDERED: VANCOMYCIN 1 GM/NS 1 GM/250 ML IVPB IV ONE (22:00)
[2018-07-30] MEDS: DEMEROL IV PRN (22:48)
[2018-07-30] MEDS: ZOFRAN IV PRN (22:49)
[2018-07-31] MEDS: DUONEB (A & A) INH SCH ×6 (03:05→23:10)
[2018-07-31] MEDS: DEMEROL IV PRN ×3 (05:07→20:39)
[2018-07-31] MEDS: ZOFRAN IV PRN (05:07)
[2018-07-31] MEDS ORDERED: D50W SYRINGE IV ONE (06:30)
[2018-07-31] MEDS: MUCOMYST 20% INH SCH ×2 (07:33→19:43)
[2018-07-31] MEDS: MERREM 1 GM in NS 50 ML IV SCH ×2 (08:27→20:38)
[2018-07-31] MEDS: STARLIX PO SCH ×2 (08:27→15:25)
[2018-07-31] MEDS: LASIX IV SCH (08:36)
[2018-07-31] MEDS: ELIQUIS PO SCH ×2 (08:37→20:41)
[2018-07-31] MEDS: CELEXA PO SCH (08:37)
[2018-07-31] MEDS: CARDIZEM CD PO SCH (08:38)
[2018-07-31] MEDS: BENADRYL CREAM TOP PRN (08:40)
[2018-07-31] MEDS ORDERED: VANCOMYCIN IV PER PHARMACY MISC SCH (09:00)
[2018-07-31 14:43] LABS: BASO# 0.06 X1000 (0.0-0.2); BASO% 0.3 % (0.0-0.8); EOS# 0.07 X1000 (0.0-0.7); EOS% 0.3 % (0.0-10.0); HEMATOCRIT 35.9 % (37.0-47.0); HEMOGLOBIN 11.6 g/dL (12.0-16.0); IMM GRAN# 0.41 X1000 (0.0-0.04); IMM GRAN% 1.9 % (0.0-0.5); LYMPH% 4.2 % (20.5-51.1); MCH 32.3 PG (27-31); MCHC 32.3 g/dL (33-37); MONO# 1.28 X1000 (0.11-0.59); MPV 12.6 FL (7.4-10.4); NEUT# 18.65 X1000 (1.4-6.5); NEUT% 87.3 % (42.2-75.2); PLT 135 X1000 (130-400); RBC 3.59 XMIL (4.2-5.4); RDW 13.5 % (11.5-14.5); WBC 21.37 X1000 (4.8-10.8)
[2018-07-31 14:56] LABS: ANISOCYTOSIS 1+; BANDS 1 % (0-1); LYMPHS 8 % (21-51); MONO 4 % (1-9); SEGS 87 % (42-75)
[2018-07-31 14:58] LABS: ALBUMIN 1.7 g/dL (3.5-5.0); CALCIUM 8.4 mg/dL (8.8-10.2); POTASSIUM 3.8 mmol/L (3.5-5.1); TOTAL BILIRUBIN 0.6 mg/dL (0.20-1.00); TOTAL PROTEIN 5.4 g/dL (6.3-8.3)
[2018-07-31] MEDS: NS 1,000 ML IV SCH (15:04)
[2018-07-31] MEDS: ALBUMIN 25% IV ONE (15:04)
[2018-07-31 17:41] LABS: BILIRUBIN URINE NEGATIVE (NEGATIVE); BLOOD URINE 1+ (NEGATIVE); CLARITY CLEAR (CLEAR); COLOR YELLOW; GLUCOSE URINE NEGATIVE (NEGATIVE); KETONE URINE NEGATIVE (NEGATIVE); LEUKOCYTES URINE NEGATIVE (NEGATIVE); NITRITE URINE NEGATIVE (NEGATIVE); PROTEIN URINE NEGATIVE (NEGATIVE); SP GRAVITY URINE 1.015; UROBILINOGEN URINE 1 mg/dL
[2018-07-31 17:45] LABS: URINE CAST GRANULAR PRESENT /LPF; URINE EPITHELIAL CELLS <10 /HPF (<10); URINE RBC <10 /HPF (<10); URINE WBC <10 /HPF (<10)
[2018-07-31 17:46] LABS: URINE BACTERIA NEGATIVE /HFP; URINE SMALL ROUND CELLS RENAL PRESENT; URINE SOURCE CATH
--- NOTE | 2018-07-31 17:49 | PROGRESS NOTE ---
DATE: 07/31/2018 Apple Allen is in bed 259, who has had just a gradual steady decline in her health here since she has been hospitalized. I discussed with her family some of the different problems that the patient has including her kidney function, possible infection, heart condition, diabetes, altered mental status and so forth. I talked to urology's office to see if they would evaluate her. The family is interested in having that done. Also discussed with Dr. Rausch about her therapy for possible sepsis. He wants to continue using the meropenem and the vancomycin. We are watching her BUN rise, but I think it is because she is not taking in fluid and getting Lasix that has been prescribed by the experimental psychologist, and I think we will liberalize the fluid just a little bit. I think also her chest x-ray is showing an atelectasis or possibly an infiltrate, and we are going to consider having her sent downstairs and do a CT of that. Her white count continues to elevate, but I honestly think she is a bit better today. Her daughter told me that she was talking earlier in the afternoon, making sense. The family of course is concerned about her mental status that has sort of changed. [place] been [place] here, she got worse. We are going to push on. I have given her some albumin to increase her protein since she has not eaten. cc: Blayne Rob MD
[2018-07-31] MEDS: XALATAN 0.005% OPH SOLN BOTH EYES SCH (20:41)
[2018-08-01] MEDS: DEMEROL IV PRN ×3 (02:12→21:49)
[2018-08-01] MEDS: DUONEB (A & A) INH SCH ×6 (03:05→23:09)
[2018-08-01] MEDS: NS 1,000 ML IV SCH ×2 (05:36→16:47)
[2018-08-01] MEDS: MUCOMYST 20% INH SCH ×2 (08:01→19:23)
[2018-08-01] MEDS: MERREM 1 GM in NS 50 ML IV SCH ×2 (08:21→21:46)
[2018-08-01] MEDS: CELEXA PO SCH (08:21)
[2018-08-01] MEDS: LASIX IV SCH (08:21)
[2018-08-01] MEDS: ELIQUIS PO SCH ×2 (08:21→21:46)
[2018-08-01] MEDS: CARDIZEM CD PO SCH (08:21)
[2018-08-01] MEDS: STARLIX PO SCH ×3 (08:22→18:52)
[2018-08-01] MEDS ORDERED: BLISTEX MEDICATED BERRY LIP BALM TOP PRN (08:44)
[2018-08-01] MEDS ORDERED: ALBUMIN 25% IV ONE (14:45)
--- NOTE | 2018-08-01 15:13 | Diag Imaging Result Doc PS360 ---
EXAM: CHEST-PORTABLE HISTORY: follow up PNE TECHNIQUE: Portable chest COMPARISON: 07/30/2018 FINDINGS: Improved inspiratory effort compared to the prior study. The heart remains enlarged. Mild increased interstitial markings persist. Questionable tiny left pleural effusion. There is also scoliosis and degenerative spine changes as well as arthritis to each shoulder. IMPRESSION: Improved inspiratory effort, but with persistent atelectasis, small infiltrate or even fibrosis. Electronically signed by Nathan Bullock 08/01/2018 3:11 PM
[2018-08-01 15:16] LABS: BASO# 0.06 X1000 (0.0-0.2); BASO% 0.3 % (0.0-0.8); EOS# 0.12 X1000 (0.0-0.7); EOS% 0.6 % (0.0-10.0); HEMATOCRIT 36.7 % (37.0-47.0); HEMOGLOBIN 11.8 g/dL (12.0-16.0); IMM GRAN# 0.28 X1000 (0.0-0.04); IMM GRAN% 1.4 % (0.0-0.5); LYMPH# 0.68 X1000 (1.2-3.4); LYMPH% 3.4 % (20.5-51.1); MCH 32.4 PG (27-31); MCHC 32.2 g/dL (33-37); MCV 100.8 FL (81-99); MONO# 0.92 X1000 (0.11-0.59); MONO% 4.6 % (1.7-9.3); MPV 12.1 FL (7.4-10.4); NEUT% 89.7 % (42.2-75.2); PLT 158 X1000 (130-400); RBC 3.64 XMIL (4.2-5.4); RDW 13.8 % (11.5-14.5); WBC 19.86 X1000 (4.8-10.8)
[2018-08-01 15:39] LABS: CALCIUM 8.4 mg/dL (8.8-10.2); CREATININE 1.5 mg/dL (0.5-0.9); POTASSIUM 3.6 mmol/L (3.5-5.1); TOTAL BILIRUBIN 0.7 mg/dL (0.20-1.00); TOTAL PROTEIN 5.9 g/dL (6.3-8.3)
[2018-08-01] MEDS: ALBUMIN 25% IV ONE (17:32)
[2018-08-01] MEDS: CLINIMIX E 4.25%-5% SOLUTION 1,000 ML IV SCH ×2 (17:34→18:37)
--- NOTE | 2018-08-01 18:53 | CONSULTATION ---
DATE OF CONSULTATION: 08/01/2018 REASON FOR CONSULTATION: Altered mental status. HISTORY OF PRESENT ILLNESS: This is an 82-year-old female who was admitted on 07/26/2018 with complaints by family of generalized malaise, confusion, and weakness. The patient also complained of some right lower quadrant pain. She was seemingly well over the holiday but was unwell starting about a day prior to when she came in. She did not want to get out of bed and was not eating well. On this admission she has been noted to have anasarca on imaging. She has an E coli urinary tract infection with some concerns of possible urosepsis. She may have a pneumonia versus atelectasis or fibrosis. She had acute renal failure on admission. The family, who was at bedside, reports that actually yesterday and today she has had some significant improvement in her mental status. They say that she was speaking coherently in sentences yesterday and even this morning. She was able to verbalize that she was hungry and thirsty and things of that nature. She had some applesauce. They report this is much better than prior. The family reports that she had actually just received a dose of Demerol shortly before my encounter, though I do not definitely see that documented in the chart. They are certain she received it, and she has been a little bit drowsy since that time. There has not been any reported seizure-like activity. No history of major neurologic event. PAST MEDICAL HISTORY: Notable for hypertension, diabetes, hyperlipidemia, atrial fibrillation, chronic pericardial effusion, reported mild dementia. FAMILY HISTORY: No strokes or seizures. SOCIAL HISTORY: She denies tobacco, alcohol or illicits. Lives with her family. ALLERGIES: Listed to oxycodone. CURRENT MEDICATIONS: Reviewed in chart and include: 1. Tylenol with codeine (last dose 2 days ago). 2. Eliquis. 3. Celexa. 4. Demerol (last dose reportedly just before I saw her). 5. Vancomycin. 6. Meropenem. REVIEW OF SYSTEMS: Balance of 12 was conducted and is otherwise negative except for that detailed in the HPI. PHYSICAL EXAMINATION: VITAL SIGNS: T max was yesterday at 99.7. Afebrile today. Blood pressures, recent, have been 105 to 125 systolic over 40s to 70s diastolic. Pulse recently in the 70s to 80s. Has been higher in the past. Respirations 18, 100% on 4 liters nasal cannula. GENERAL: Ms. Allen is supine in bed. She is awake. She is briefly attentive and drifts back to sleep. She requires frequent stimulation to attend. Again, family notes that just earlier this morning she was much more alert and conversational, which is a significant improvement for her, but has been more groggy since just after receiving her pain medication. NEUROLOGIC: She is oriented to self and her family. She knows she is in the hospital. She cannot otherwise answer orientation questions correctly. She follows some simple commands, not a complex command. Pupils are equal, round and reactive to light, miotic. Gaze is conjugate, forward. Ocular movements are full, at least laterally. She does not attend well enough for visual field testing. There is blinking to threat, however. The face appears to be symmetric with equal activation. Tongue is midline. I cannot visualize the palate. She shrugs her shoulders. She appears to have at least 4/5 strength in the upper extremities. In the lower extremities she tends to guard due to complaints of pain. I believe she is at least 3/5 with noxious stimuli. She plantar flexes for me on command, and that is graded 4/5 at least with repeated commands. I cannot get her to otherwise participate formally with strength testing of the lower extremities. She responds to noxious stimuli in all extremities. She does not attend well enough for more detailed sensory testing. Reflexes are absent at the ankles. No clonus. Plantar response is downgoing. I could not elicit reflexes at the knees. She has trace reflexes at the wrists and biceps. She does not attend well enough for formal coordination testing. I did not test her gait. DIAGNOSTICS: White count was 16 on admission, currently 19. Platelets normal today. Blood gas 2 days ago with a pH of 7.32, pCO2 of 58, pO2 of 83. Sodium 132, currently normal. BUN currently 57. Has fluctuated as high as 64 yesterday. Her baseline seems to be lower than that, maybe in the 20s, 30s or 40s. Creatinine is 1.5 today and yesterday was 1.0, 1.7 on admit. Blood sugar is anywhere from 64 up to 237. Calcium is 8.4, magnesium normal. AST normal, ALT normal. Urine is growing E coli. Blood cultures are pending. Head CT did not show acute findings. ASSESSMENT/PLAN: Global encephalopathy, may be multifactorial with contributions from acute renal failure, respiratory status and underlying infections, including urinary tract infection. This may be superimposed on reported mild baseline dementia, though I am not certain of her baseline cognitive status entirely. Negative head CT is reassuring, as is her family's report of notable improvement yesterday and this morning. I would continue monitoring her clinically, continue treating her underlying medical conditions, and see how she does. If she does not continue to show improvement over the next day or two, then I would consider an EEG and an MRI of the brain. I would limit sedating medications as able and see if we can get her to consistently wake up. I would use frequent reorienting while she is in the hospital. Thank you for the consultation. cc: MD Blayne Vincent MD
[2018-08-01] MEDS: XALATAN 0.005% OPH SOLN BOTH EYES SCH (21:46)
[2018-08-01] MEDS ORDERED: VANCOMYCIN 1 GM/NS 1 GM/250 ML IVPB IV SCH (22:00)
[2018-08-02 00:44] LABS: BASO# 0.03 X1000 (0.0-0.2); BASO% 0.2 % (0.0-0.8); EOS# 0.16 X1000 (0.0-0.7); EOS% 0.9 % (0.0-10.0); HEMATOCRIT 33.7 % (37.0-47.0); HEMOGLOBIN 11.1 g/dL (12.0-16.0); IMM GRAN# 0.26 X1000 (0.0-0.04); IMM GRAN% 1.5 % (0.0-0.5); LYMPH# 0.79 X1000 (1.2-3.4); LYMPH% 4.7 % (20.5-51.1); MCH 32.8 PG (27-31); MCHC 32.9 g/dL (33-37); MCV 99.7 FL (81-99); MONO# 0.89 X1000 (0.11-0.59); MONO% 5.2 % (1.7-9.3); MPV 12.3 FL (7.4-10.4); NEUT# 14.85 X1000 (1.4-6.5); NEUT% 87.5 % (42.2-75.2); PLT 128 X1000 (130-400); RBC 3.38 XMIL (4.2-5.4); RDW 13.7 % (11.5-14.5); WBC 16.98 X1000 (4.8-10.8)
[2018-08-02] MEDS: NS 1,000 ML IV SCH ×2 (02:13→14:05)
[2018-08-02] MEDS: DUONEB (A & A) INH SCH ×6 (03:10→23:11)
[2018-08-02 04:25] LABS: BANDS 6 % (0-1); EOS 1 % (1-10); LYMPHS 3 % (21-51); MONO 2 % (1-9); POIKILOCYTOSIS 1+; SEGS 88 % (42-75)
[2018-08-02 06:14] LABS: BE 5.4 mmoll (-3.0-3.0); BLOOD TYPE ARTERIAL; HCO3-(ACT) 28.9 mmoll (20.0-26.0); METHB 1.4 % (0.0-1.5); O2(CT) 14.7 mL/dL (15.0-23.0); PCO2(98.6) 46 mmHg (35-45); PO2(98.6) 53 mmHg (60-100); SAMPLE BLOOD; SAO2 90.3 % (95.0-100.0); pH(98.6) 7.43 (7.35-7.45)
[2018-08-02 06:18] LABS: ALLEN TEST YES; MODALITY BI PAP; O2HB 87.4 % (95.0-99.0)
[2018-08-02 06:29] LABS: ALBUMIN 2.4 g/dL (3.5-5.0); CALCIUM 8.7 mg/dL (8.8-10.2); CREATININE 1.3 mg/dL (0.5-0.9); POTASSIUM 3.6 mmol/L (3.5-5.1); TOTAL BILIRUBIN 0.8 mg/dL (0.20-1.00); TOTAL PROTEIN 5.5 g/dL (6.3-8.3)
[2018-08-02] MEDS: MUCOMYST 20% INH SCH ×2 (08:00→20:10)
[2018-08-02] MEDS: MERREM 1 GM in NS 50 ML IV SCH ×3 (08:30→20:52)
[2018-08-02] MEDS: LASIX IV SCH (08:30)
[2018-08-02] MEDS: ELIQUIS PO SCH ×2 (08:31→20:52)
[2018-08-02] MEDS: STARLIX PO SCH ×2 (08:31→16:47)
[2018-08-02] MEDS: CELEXA PO SCH (08:31)
[2018-08-02] MEDS: CARDIZEM CD PO SCH (08:31)
[2018-08-02] MEDS: DEMEROL IV PRN ×2 (14:00→20:52)
--- NOTE | 2018-08-02 20:17 | Diag Imaging Result Doc PS360 ---
EXAM: CT THORAX W/O CONTRAST 08/02/2018 HISTORY: pneumonia TECHNIQUE: This exam was performed using automated exposure control, adjustment of mA or kV according to patient size, and/or use of iterative reconstruction technique. COMMENT: There are bilateral pleural effusions. There is atelectasis or pneumonia in the left lower lobe and atelectasis to a lesser extent in the right lower lobe. Some platelike atelectasis is present in the upper lobes. There are no previous thoracic studies available for comparison. Compared to the previous abdominal study of 07/26/2018 the opacities in the lung bases are much worse and the pleural fluid collections were not present previously. There is no evidence of significant adenopathy. There are calcified granulomatous nodes in the left hilum. There is extensive coronary calcification. There is a pericardial effusion. There are spondylotic changes in the thoracic spine. There is no evidence of acute bony abnormality. IMPRESSION: Atelectasis versus pneumonia particularly in the left lower lobe with bilateral pleural effusions. Electronically signed by Ortiz Shelley 08/02/2018 8:14 PM
[2018-08-02] MEDS: MYCELEX TROCHE PO SCH (20:58)
[2018-08-02] MEDS ORDERED: MYCOSTATIN SUSP PO SCH (21:00)
[2018-08-03] MEDS: XALATAN 0.005% OPH SOLN BOTH EYES SCH ×2 (00:15→21:44)
[2018-08-03] MEDS: NS 1,000 ML IV SCH ×5 (00:17→23:14)
[2018-08-03] MEDS: BENADRYL IV PRN ×2 (03:37→12:59)
[2018-08-03] MEDS: DUONEB (A & A) INH SCH ×6 (03:55→23:44)
[2018-08-03] MEDS ORDERED: VANCOMYCIN 1,500 MG in NS 250 ML IV SCH (06:00)
[2018-08-03] MEDS: DEMEROL IV PRN (07:02)
[2018-08-03] MEDS: STARLIX PO SCH ×2 (08:19→16:20)
[2018-08-03] MEDS: LASIX IV SCH (08:20)
[2018-08-03] MEDS: MUCOMYST 20% INH SCH ×2 (08:20→19:11)
[2018-08-03] MEDS: ELIQUIS PO SCH ×2 (08:20→21:43)
[2018-08-03] MEDS: MERREM 1 GM in NS 50 ML IV SCH ×2 (08:20→19:57)
[2018-08-03] MEDS: MYCELEX TROCHE PO SCH ×5 (08:20→21:44)
[2018-08-03] MEDS: CARDIZEM CD PO SCH (08:20)
[2018-08-03] MEDS: CELEXA PO SCH (08:20)
[2018-08-03] MEDS: CLINIMIX E 4.25%-5% SOLUTION 1,000 ML IV SCH ×2 (16:28→16:29)
[2018-08-03 17:27] LABS: BASO# 0.03 X1000 (0.0-0.2); BASO% 0.2 % (0.0-0.8); EOS# 0.12 X1000 (0.0-0.7); EOS% 0.7 % (0.0-10.0); HEMATOCRIT 36.1 % (37.0-47.0); HEMOGLOBIN 11.3 g/dL (12.0-16.0); IMM GRAN# 0.21 X1000 (0.0-0.04); IMM GRAN% 1.2 % (0.0-0.5); LYMPH# 0.81 X1000 (1.2-3.4); LYMPH% 4.6 % (20.5-51.1); MCHC 31.3 g/dL (33-37); MCV 102.3 FL (81-99); MONO# 1.01 X1000 (0.11-0.59); MONO% 5.7 % (1.7-9.3); MPV 12.3 FL (7.4-10.4); NEUT# 15.59 X1000 (1.4-6.5); NEUT% 87.6 % (42.2-75.2); PLT 185 X1000 (130-400); RBC 3.53 XMIL (4.2-5.4); RDW 13.9 % (11.5-14.5); WBC 17.77 X1000 (4.8-10.8)
--- NOTE | 2018-08-03 17:31 | PROGRESS NOTE ---
DATE: 08/02/2018 SUBJECTIVE: She is currently getting meropenem and vancomycin for suspected sepsis. She does have a history of an E coli urinary tract infection at the outset of her hospital stay with minimal findings in her urine. She subsequently has had some gram-positive cocci growing out her bloodstream. We have been supplementing her with albumin, and we are currently feeding her. Today she is off her CPAP. She does not have any significant accumulation of fluids. She has been talking, per her daughter. She has had some issues with hallucination but seems to be doing a bit better today. OBJECTIVE: Vital Signs: Her temperature is 97.3, pulse 105, BP 106/76. She is on nasal cannula. O2 saturation is 98%. LABORATORY DATA: Done yesterday, revealing a white count of 16,980, hematocrit 33.7, platelet count 128. cc: Blayne Rob MD
--- NOTE | 2018-08-03 17:37 | PROGRESS NOTE ---
DATE: 08/01/2018 SUBJECTIVE: She is currently being treated with vancomycin and meropenem for suspected sepsis. Possible sources include her GI tract, but nothing was revealed on the previous CT abdomen and pelvis. In the kidneys she has scant growth, a relatively clean urinalysis that grew out E coli, and now she has gram-positive cocci. She is being supplemented with albumin and seems to be getting better. She is begrudgingly using her CPAP. LABORATORY DATA: White count 19,860, hematocrit 36.7, platelet count 158. Chemistries include a sodium of 137, potassium of 3.6, chloride of 100, CO2 of 27, BUN of 57, creatinine of 1.5, GFR of 33. Total protein is 5.9, albumin 2. LFTs normal. Hematology noted. ASSESSMENT/PLAN: We will continue her therapy. cc: Blayne Rob MD
[2018-08-03 17:48] LABS: CALCIUM 8.6 mg/dL (8.8-10.2); CREATININE 1.2 mg/dL (0.5-0.9); POTASSIUM 4.3 mmol/L (3.5-5.1); TOTAL BILIRUBIN 0.6 mg/dL (0.20-1.00); TOTAL PROTEIN 5.8 g/dL (6.3-8.3)
--- NOTE | 2018-08-03 17:51 | PROGRESS NOTE ---
DATE: 07/31/2018 SUBJECTIVE: The patient has been recently given Mucomyst 30% along with albuterol/ipratropium in attempts to open what is repeatedly described as an atelectatic-type lung. She is on vancomycin and meropenem for broad-spectrum antibiotic coverage after the erratic antibiotic start. There do not seem to be any issues with rash with these particular medications. We are continuing on the meropenem and the vancomycin, adjusting according to her renal function. She does look a little better today. IMAGING: Her chest x-ray done yesterday shows poor inspiration and some apparent atelectasis in both lung bases and the perihilar portion of the right upper lobe that was not present on 07/29/2018. He has read it as atelectasis versus pneumonia, and we have pneumonia covered. LABORATORY DATA: Labs today show that her urine has 1+ blood, less than 10 RBCs, negative white cells, negative epithelial cells, negative urine WBCs. I just do not think that this is the etiology of her poor response. She is doing a little better on the CPAP, tolerating it a little bit; however, she has a pH of 7.32, pCO2 of 58, pO2 of 83 on 32%. Her laboratories otherwise showed a sodium of 136, potassium of 3.8, chloride of 98, CO2 of 28, BUN of 64, creatinine of 2. Estimated GFR is 24. BUN/creatinine ratio is 32. Glucose is 116. Albumin is down to 1.7, and total protein is 5.4. We are considering giving her albumin 25 grams CBC: White count is 21,370, hematocrit 35.9, platelet count 135. OBJECTIVE: Abdomen: Her belly is soft. Extremities: There is no edema in her lower extremities. Chest: Bilateral breath sounds. Cardiovascular: Regular heart rate. cc: Blayne Rob MD
--- NOTE | 2018-08-03 18:07 | PROGRESS NOTE ---
DATE: 08/01/2018 SUBJECTIVE: She has had a chest x-ray done this afternoon that showed improved inspiratory effort. The heart remains enlarged. Mild interstitial markings persist, questionable tiny left pleural effusion and degenerative changes of the spine. The general impression was atelectasis, small infiltrate or fibrosis. She is wearing her CPAP and tolerates it pretty well. Still has issues with rashes occurring here and there. I do not see any particular rash now, other than inside her belly button. She has been speaking some and taking in some liquids along with her supplemental IV nutrition. OBJECTIVE: Vital Signs: Temperature 98, pulse 87, respiratory rate 18, blood pressure 173/43, O2 saturation on 4 liters at 100%. LABORATORY DATA: On the 8th, sodium is 137, potassium 3.6, chloride 100. CO2 is 27. BUN 67, creatinine 1.5, glucose 168, GFR 33. Calcium 8.4. Albumin is 2. She has received some albumin. Liver functions are normal. Hematology: On the 8th, white count is 19,860, hematocrit 36.7, platelet count 158. She has a left shift. Cultures are still pending. ASSESSMENT/PLAN: Chest x-ray report is very ambiguous, but we are treating with broad-spectrum antibiotic coverage. cc: Blayne Rob MD
--- NOTE | 2018-08-03 18:20 | PROGRESS NOTE ---
DATE: 07/28/2018 SUBJECTIVE: She had had some issues the previous night with rashes related to initially, we thought, her Levaquin, and she subsequently had some issues with piperacillin. We discussed at length with Dr. Stew Rausch about the possibility of sepsis. She was seen at night by Dr. Real, who was going to add gentamicin on the presumption of possible sepsis from her bladder and E coli. We got broader coverage, however, by doing meropenem and vancomycin to cover the possibility of sepsis perhaps related to her urinary tract infection, although her microscopic urinalysis is not very impressive at all. The chart reveals that we added antibiotics to see what was happening. We had started the Levaquin on the 4th, piperacillin on the 5th, and meropenem on the 6th, along with vancomycin on the 6th. OBJECTIVE: Vital Signs on the 6th: Temperature 99 axillary, pulse rate 91, respiratory rate 36, blood pressure 113/79, O2 saturation 97%. LABORATORY DATA: On the 6th, white count was 21,810. Platelet count was 127, hematocrit 36.6. ASSESSMENT/PLAN: She is a little bit lethargic. She is notably tachypneic. We will change the antibiotics and see what happens. cc: Blayne Rob MD
[2018-08-03 18:30] LABS: BE 7.7 mmoll (-3.0-3.0); BLOOD TYPE ARTERIAL; HCO3-(ACT) 30.9 mmoll (20.0-26.0); O2(CT) 15.4 mL/dL (15.0-23.0); O2HB 93.9 % (95.0-99.0); PCO2(98.6) 43 mmHg (35-45); PO2(98.6) 74 mmHg (60-100); SAMPLE BLOOD; THB 11.6 g/dL (11.5-17.4); pH(98.6) 7.48 (7.35-7.45)
[2018-08-03 18:32] LABS: ALLEN TEST NO; MODALITY CANNULA
--- NOTE | 2018-08-03 18:33 | PROGRESS NOTE ---
DATE: 07/27/2018 SUBJECTIVE: This is an 83-year-old female who was admitted the previous evening with malaise. Her temperature was 98.6 when she got here. Respiratory rate was 18. Pulse was 107. White count was elevated at 16,680 with a left shift. Hematocrit was 40.2. Platelet count was 132. BUN was 54, creatinine 1.7. Glucose was 152. GFR estimated to be at 29. Calcium, total protein and albumin were all normal. Troponin was negative. While she was in the ER she had a CT abdomen and pelvis which was read as plate-like atelectasis in both lower lobes, which has actually improved since her previous examination. There has been a previous cholecystectomy. The adrenal glands are hyperplastic. The spleen is not enlarged. Extensive atherosclerosis. Dense calcification in the renal arteries. Calcification is present in the lobar arteries, particularly on the left side. There is dense calcification in the superior mesenteric artery. There is subcutaneous edema generally, particularly over the left flank. There is stool and gas in the colon. Small bowel not distended. Bile duct somewhat distended but no stones. The appendix is not distended. The urinary bladder is slightly distended, which has not been the case previously. There are no pelvic masses. There is diverticulosis but no diverticulitis. There is no significant free fluid. It was read as anasarca, diverticulosis coli, slightly distended urinary bladder and mild constipation. She had a repeat chest x-ray, again looking for some sources. The lungs were well expanded. The heart was mildly enlarged. The vessels were not distended. There are no infiltrates. No pleural effusions. She had been placed on ceftriaxone in the emergency room; however, it was not continued. We ended up supplemented supplementing it with Levaquin. She also had complained earlier in the week, before she presented to the ER at this particular visit, of some hip pain primarily on the right. CT abdomen and pelvis was done. Her pelvis was normal. 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 OBJECTIVE: Vital Signs on the 3rd: Temperature 97, pulse 103, respiratory rate 16, blood pressure 155/86, O2 saturation 96.2%. ASSESSMENT/PLAN: Will continue the antibiotic therapy. cc: Blayne Rob MD
--- NOTE | 2018-08-03 19:02 | PROGRESS NOTE ---
DATE: 07/28/2018 OBJECTIVE: Vital Signs on the 4th: She had temperature of 97.6, pulse was 109, blood pressure 149/81, O2 saturation 100%. LABORATORY DATA: On the 4th: White count was 15,660, hematocrit was 42.8, platelet count was 121,000, left shift. She had blood gases - pH 7.46, pCO2 36, pO2 83, FIO2 28%. Lactic acid 1.3. Chemistries: Sodium was 132, potassium 4.1, chloride 98, CO2 23, BUN 44, creatinine 1.2, GFR 43, BUN/creatinine ratio 37, glucose 237, calcium 8.5. Her proBNP was 19,411. ASSESSMENT/PLAN: I think that historically she has had a history of pericardial effusion, that was watched somewhat in the past. Has not been studied lately. I am wondering if this may be playing a role in her anasarca in her lower extremities and the questionable effusions on her chest. We asked Cardiology to see her. Also, she had been given some ceftriaxone yesterday afternoon, was not continued upstairs, so we are adding Levaquin. Her condition seems somewhat worsened. She is intermittently confused and seems to have a very tachypneic respiratory response. We are awaiting cultures of her urine. cc: Blayne Rob MD
[2018-08-04] MEDS ORDERED: MOTRIN PO ONE (02:01)
[2018-08-04] MEDS: DUONEB (A & A) INH SCH ×6 (03:46→23:06)
[2018-08-04] MEDS ORDERED: ALBUMIN 25% IV ONE (07:40)
[2018-08-04] MEDS: MUCOMYST 20% INH SCH ×2 (08:15→20:53)
--- NOTE | 2018-08-04 08:32 | Diag Imaging Result Doc PS360 ---
EXAM: CHEST-PORTABLE INDICATION: SOB TECHNIQUE: One view COMPARISON: 08/01/2018 FINDINGS: There are stable increased interstitial markings suggesting likely mild edema. No new consolidation is identified. Cardiac silhouette is stable. IMPRESSION: Stable chest. Electronically signed by Chandler Garcia 08/04/2018 8:30 AM
[2018-08-04 08:33] LABS: BE 7.5 mmoll (-3.0-3.0); BLOOD TYPE ARTERIAL; HCO3-(ACT) 30.7 mmoll (20.0-26.0); METHB 1.2 % (0.0-1.5); O2(CT) 14.8 mL/dL (15.0-23.0); O2HB 93.6 % (95.0-99.0); PCO2(98.6) 44 mmHg (35-45); PO2(98.6) 78 mmHg (60-100); SAMPLE BLOOD; THB 11.2 g/dL (11.5-17.4); pH(98.6) 7.47 (7.35-7.45)
[2018-08-04 08:38] LABS: ALLEN TEST NO; MODALITY CANNULA
[2018-08-04] MEDS: CLINIMIX E 4.25%-5% SOLUTION 1,000 ML IV SCH ×2 (08:40→22:44)
[2018-08-04] MEDS: MYCELEX TROCHE PO SCH ×4 (08:42→22:45)
[2018-08-04] MEDS: CELEXA PO SCH (08:42)
[2018-08-04] MEDS: LASIX IV SCH (08:42)
[2018-08-04] MEDS: CARDIZEM CD PO SCH (08:42)
[2018-08-04] MEDS: ELIQUIS PO SCH ×2 (08:42→21:43)
[2018-08-04] MEDS: STARLIX PO SCH ×2 (08:42→15:43)
[2018-08-04 08:50] LABS: BASO# 0.03 X1000 (0.0-0.2); BASO% 0.2 % (0.0-0.8); EOS# 0.12 X1000 (0.0-0.7); EOS% 0.7 % (0.0-10.0); HEMATOCRIT 35.3 % (37.0-47.0); HEMOGLOBIN 10.9 g/dL (12.0-16.0); IMM GRAN# 0.16 X1000 (0.0-0.04); LYMPH# 1.12 X1000 (1.2-3.4); LYMPH% 6.7 % (20.5-51.1); MCH 31.7 PG (27-31); MCHC 30.9 g/dL (33-37); MCV 102.6 FL (81-99); MONO# 1.02 X1000 (0.11-0.59); MONO% 6.1 % (1.7-9.3); MPV 11.5 FL (7.4-10.4); NEUT# 14.27 X1000 (1.4-6.5); NEUT% 85.3 % (42.2-75.2); PLT 195 X1000 (130-400); RBC 3.44 XMIL (4.2-5.4); WBC 16.72 X1000 (4.8-10.8)
[2018-08-04 09:03] LABS: ALBUMIN 1.9 g/dL (3.5-5.0); CALCIUM 8.6 mg/dL (8.8-10.2); CREATININE 1.2 mg/dL (0.5-0.9); POTASSIUM 4.6 mmol/L (3.5-5.1); TOTAL BILIRUBIN 0.7 mg/dL (0.20-1.00); TOTAL PROTEIN 5.7 g/dL (6.3-8.3)
[2018-08-04 09:31] LABS: ANISOCYTOSIS 1+; LYMPHS 12 % (21-51); MONO 2 % (1-9); SEGS 86 % (42-75)
[2018-08-04] MEDS: MERREM 1 GM in NS 50 ML IV SCH (13:07)
[2018-08-04] MEDS: NS 1,000 ML IV SCH ×3 (13:15→22:44)
[2018-08-04 13:19] LABS: INFLUENZA A NEGATIVE (NEGATIVE); INFLUENZA B NEGATIVE (NEGATIVE)
--- NOTE | 2018-08-04 15:33 | PROGRESS NOTE ---
DATE: 08/04/2018 This is an 83-year-old female who now has 2 positive MRSA staph blood cultures. She started running a fever last night and we did 2 flu swabs and they were negative. She has a chest x-ray from today that shows that there are increased markings suggesting likely mild edema. No new consolidation is identified. So, I talked to Dr. Stew Rausch and he suggested that in the setting of this fever and possible bacterial endocarditis and a long-term course of vancomycin being perhaps needed because of her renal insufficiency he chose to use some daptomycin, 500 mg IV daily, and to discontinue her vancomycin and give her Rocephin 1 g daily and stop the meropenem. She has been doing less twitching. Her IV that was in her left forearm has a red streak extending from the site up towards her elbow that is tender to touch. So, we are in the process of starting a long-term IV and transfer her across town so she can be evaluated by ID first hand, Pulmonary, Renal, and Cardiology. cc: Blayne Rob MD
[2018-08-04] MEDS ORDERED: CUBICIN 500 MG in NS 100 ML IV SCH (17:00)
[2018-08-04] MEDS: ROCEPHIN 1 GM in NS 50 ML IV SCH ×2 (17:23→21:43)
[2018-08-04] MEDS ORDERED: BENADRYL IV PRN (18:46)
[2018-08-04] MEDS ORDERED: BENADRYL CREAM TOP PRN (18:47)
[2018-08-04] MEDS ORDERED: BLISTEX MEDICATED BERRY LIP BALM TOP PRN (18:48)
[2018-08-04] MEDS ORDERED: DUONEB (A & A) INH PRN (18:52)
[2018-08-04] MEDS ORDERED: TYLENOL PO PRN (18:59)
[2018-08-04] MEDS ORDERED: TYLENOL WITH CODEINE #3 PO PRN (18:59)
[2018-08-04] MEDS ORDERED: ZOFRAN IV PRN (19:01)
[2018-08-04] MEDS ORDERED: ELIQUIS PO SCH (21:00)
[2018-08-04] MEDS: CUBICIN 500 MG in NS 100 ML IV SCH (22:44)
[2018-08-04] MEDS: XALATAN 0.005% OPH SOLN BOTH EYES SCH (23:01)
--- NOTE | 2018-08-05 01:25 | CARDIOLOGY PROGRESS NOTE ---
DATE: 08/04/2018 SUBJECTIVE: Ms. Allen continues to do somewhat poorly. Family reports that she is awake a bit more this evening. She is off of her BiPAP. She continues to receive antibiotics. OBJECTIVE: Vital Signs: The patient is afebrile presently, but she had a T-max today of 101.6 and has been febrile essentially since around midnight last night. Heart rate is 79, blood pressure 133/58. General: She is a ill-appearing white female in no acute distress presently. She is not complaining of shortness of breath. Cardiovascular: She has a regular rate but irregular rhythm. She has no murmurs. She has warm and well-perfused extremities. Somewhat diffuse anasarca. Chest: Lungs have poor inspiratory effort. She has diffuse coarse breath sounds throughout. No increased work of breathing. Abdomen: Soft, nontender, and nondistended. She has no obvious organomegaly. PERTINENT DATA: Her chest x-ray demonstrates a suggestion of mild edema, no new consolidations. She had a chest CT done on 08/02/2018 demonstrating atelectasis versus pneumonia particularly in the left lower lobe with bilateral pleural effusions. Her white count is 16.7 which is down from 17 yesterday, hematocrit is 35, platelet count is 195,000. She has a left shift. She has a lactate of 0.8. Her ABG has a pH of 7.47. Her sodium is 143, potassium is 4.6. Her BUN is 62 with a creatinine of 1.2, yesterday it was 58 and 1.2. Her proBNP today is 19,000. Her albumin is 1.9. ASSESSMENT: Ms. Allen an 83-year-old female, she has a history of pulmonary hypertension and atrial fibrillation. She seems septic at this point with persistent fevers and gram-positive Staphylococcus aureus in her blood. PLAN: She is due to transfer over to [facility] for evaluations by Pulmonary as well as by Infectious Disease. Her volume issue at this point seems to be significantly complicated by her hypoalbuminemia. She has a markedly elevated BUN and creatinine ratio. I would be hesitant to increase her diuresis at this point, as we may stress her kidneys. She had an echocardiogram performed on 07/27/2018 demonstrating a pericardial effusion identified with no evidence of tamponade. This was consistent with previous studies. She has not been hypotensive. We will continue to follow presently. cc: MD Blayne Collins MD
[2018-08-05] MEDS: DUONEB (A & A) INH SCH ×6 (03:00→23:16)
[2018-08-05 06:05] LABS: INR 1.7; PROTIME 21.3 Seconds (11.0-16.0)
[2018-08-05 06:23] LABS: BASO# 0.02 X1000 (0.0-0.2); BASO% 0.1 % (0.0-0.8); EOS% 1.1 % (0.0-10.0); HEMATOCRIT 34.8 % (37.0-47.0); HEMOGLOBIN 11.1 g/dL (12.0-16.0); IMM GRAN# 0.12 X1000 (0.0-0.04); IMM GRAN% 0.7 % (0.0-0.5); LYMPH# 0.92 X1000 (1.2-3.4); MCH 32.6 PG (27-31); MCHC 31.9 g/dL (33-37); MCV 102.4 FL (81-99); MONO# 0.63 X1000 (0.11-0.59); MONO% 3.4 % (1.7-9.3); MPV 12.1 FL (7.4-10.4); NEUT# 16.55 X1000 (1.4-6.5); NEUT% 89.7 % (42.2-75.2); PLT 199 X1000 (130-400); RDW 13.9 % (11.5-14.5); WBC 18.44 X1000 (4.8-10.8)
[2018-08-05] MEDS: NS 1,000 ML IV SCH ×2 (06:26→14:23)
[2018-08-05] MEDS: STARLIX PO SCH ×2 (06:40→15:18)
[2018-08-05 06:51] LABS: CALCIUM 8.8 mg/dL (8.8-10.2); MAGNESIUM 1.9 mg/dL (1.5-2.7); POTASSIUM 4.7 mmol/L (3.5-5.1)
[2018-08-05 07:32] LABS: BASO 10 % (0-1); EOS 2 % (1-10); LYMPHS 4 % (21-51); MONO 6 % (1-9); SEGS 78 % (42-75)
[2018-08-05] MEDS: MUCOMYST 20% INH SCH (08:09)
[2018-08-05] MEDS: MYCELEX TROCHE PO SCH ×5 (08:16→20:42)
[2018-08-05] MEDS: CELEXA PO SCH (08:16)
[2018-08-05] MEDS: LASIX IV SCH (08:16)
[2018-08-05] MEDS: ELIQUIS PO SCH ×2 (08:16→20:42)
[2018-08-05] MEDS: CARDIZEM CD PO SCH (08:17)
--- NOTE | 2018-08-05 14:42 | PROGRESS NOTE ---
DATE: 08/05/2018 This morning Ms. Allen refers to be feeling remarkably weak, daughter was at the bedside at the time of the encounter. Ms Allen was initially admitted to [place] on 07/26/2018 mainly because of generalized complaints including weakness. During the hospital course she was found to have an MRSA bacteremia. Patient was on vancomycin at some point however repeat blood cultures continue to be positive so this has been changed to daptomycin. The patient was initially under Dr. Rob in [place] and was transferred over here. She seems to have been seen by Cardiology and Neurology. OBJECTIVE: Vitals: This morning blood pressure is 128/47, pulse is 85, respiration is 24, temperature is 97.8 degrees. General: Ms. Allen 83-year-old female she was in bed. She did not seem to be in any cardiopulmonary distress. Mucosa was pink and moist. Anicteric. Acyanotic. Neck: Supple. Chest: Air entry was bilaterally reduced. Some crackles posterior. Cardiovascular: Irregularly irregular. There is a 2/6 murmur and about 3/6 TR murmur. Abdomen: Soft, nontender. Extremities: No pedal edema. There is a bilateral knee scars consistent with previous knee surgeries. CURRENT MEDICATIONS: Have also been reviewed. LABORATORY DATA: WBC is 18.44, hemoglobin is 11.1, platelet count of 199,000. There is no bands on peripheral smear. INR is 1.70. Chemistry is also reviewed, creatinine is 1.0, rest of chemistry is unremarkable. IMAGING STUDIES: CT scan of the chest which was done on the shows atelectasis versus pneumonia particularly in the left lower lobe with bilateral pleural effusion. An echocardiogram which was done shows an ejection fraction of 65%. Valves seems to have been fairly normal. ASSESSMENT: 1. Sepsis with Methicillin-resistant Staphylococcus aureus bacteremia. The source of this have not been well-established. There is some evidence of possible pneumonia, I am not sure if that was the source. At any case, repeat blood culture seems to be positive so we going to continue with the current daptomycin. The patient is pending to be evaluated by ID. The patient does have hardware in her knees which will make her treatment a little bit longer. 2. Atrial fibrillation. The patient is on diltiazem for rate control and Eliquis for stroke prophylaxis. 3. Acute kidney injury improving. cc: Harley Hurtado MD
[2018-08-05] MEDS: ROCEPHIN 1 GM in NS 50 ML IV SCH (15:30)
[2018-08-05] MEDS: CLINIMIX E 4.25%-5% SOLUTION 1,000 ML IV SCH (18:37)
[2018-08-05] MEDS: CUBICIN 500 MG in NS 100 ML IV SCH (20:42)
[2018-08-05] MEDS: DEMEROL IV PRN (20:42)
[2018-08-05] MEDS: HUMULIN R SUBQ SCH (21:00)
[2018-08-05] MEDS: XALATAN 0.005% OPH SOLN BOTH EYES SCH (22:42)
[2018-08-06] MEDS: DUONEB (A & A) INH SCH ×6 (03:03→23:05)
[2018-08-06 05:54] LABS: BASO# 0.02 X1000 (0.0-0.2); BASO% 0.1 % (0.0-0.8); EOS# 0.14 X1000 (0.0-0.7); HEMATOCRIT 32.9 % (37.0-47.0); HEMOGLOBIN 10.3 g/dL (12.0-16.0); IMM GRAN# 0.07 X1000 (0.0-0.04); IMM GRAN% 0.5 % (0.0-0.5); LYMPH# 0.81 X1000 (1.2-3.4); LYMPH% 5.7 % (20.5-51.1); MCH 31.7 PG (27-31); MCHC 31.3 g/dL (33-37); MCV 101.2 FL (81-99); MONO# 0.74 X1000 (0.11-0.59); MONO% 5.2 % (1.7-9.3); MPV 12.2 FL (7.4-10.4); NEUT# 12.49 X1000 (1.4-6.5); NEUT% 87.5 % (42.2-75.2); PLT 193 X1000 (130-400); RBC 3.25 XMIL (4.2-5.4); RDW 13.7 % (11.5-14.5); WBC 14.27 X1000 (4.8-10.8)
[2018-08-06 06:08] LABS: ALB/GLOB RATIO 0.5; CALCIUM 8.5 mg/dL (8.8-10.2); POTASSIUM 4.5 mmol/L (3.5-5.1); TOTAL BILIRUBIN 0.57 mg/dL (0.20-1.00); TOTAL PROTEIN 5.8 g/dL (6.3-8.3)
[2018-08-06] MEDS: HUMULIN R SUBQ SCH ×4 (06:11→21:02)
[2018-08-06 06:29] LABS: EOS 2 % (1-10); LYMPHS 4 % (21-51); MONO 4 % (1-9); SEGS 90 % (42-75)
[2018-08-06] MEDS: CARDIZEM CD PO SCH (08:55)
[2018-08-06] MEDS: LASIX IV SCH (08:55)
[2018-08-06] MEDS: CELEXA PO SCH (08:55)
[2018-08-06] MEDS: ELIQUIS PO SCH ×3 (08:56→21:03)
[2018-08-06] MEDS: COLACE PO SCH ×3 (09:07→21:02)
[2018-08-06] MEDS: DEMEROL IV PRN ×3 (09:07→21:43)
[2018-08-06] MEDS: MYCOSTATIN SUSP PO SCH ×5 (09:08→21:01)
[2018-08-06] MEDS: MIRALAX PO SCH (09:08)
--- NOTE | 2018-08-06 10:03 | INFECTIOUS DISEASE CONSULT REP ---
DATE: 08/06/2018 CONCLUSION: The patient is admitted to the hospital. She has a methicillin- resistant Staphylococcus aureus bacteremia. I am uncertain as to where the bacteremia originated from. Unfortunately, she has prosthetic knee joints bilaterally and these joints could have become infected while the patient is bacteremic. Also, I think it is possible that the patient could have endocarditis. The patient also has an E. coli urinary tract infection and she has oral candidiasis. RECOMMENDATIONS: Dr. Rob called me 2 days ago about treating the patient. At that time, I recommended and I still recommend that the patient be treated with daptomycin rather than vancomycin due to the patient's age. Also, I suggested to Dr. Rob that he treat the patient's urinary tract infection with Rocephin 1 g IV daily, which she is on and also she is on the daptomycin I recommended to him. Finally, the patient does have oral candidiasis. The patient's daughter would prefer if she had Mycostatin swish and swallow rather than the Mycelex Jessica. I have switched her from Mycelex to Mycostatin swish and swallow. I discussed with the patient's daughter that the echocardiogram did not show endocarditis but it could possibly be there and a transesophageal echocardiogram might pickle pumper endocarditis where the transthoracic one did not. I do not think that should be done because even if we discovered that the patient had endocarditis, it is not going to change how we are going to treat the patient. The patient will need a total of 8 weeks with IV daptomycin in case her knees became infected hematogenously and this also will cover the patient if she does have endocarditis. Even if she had endocarditis and the infection was getting worse , the patient would not be a candidate for a valve replacement. The patient's daughter said she would not want her mother put through that either. I also think it would be useful to have a lumbar puncture performed to see if the patient has meningitis which could be causing her altered mental status and for that, I have put in a consult for Dr. Castro to consider doing a lumbar puncture tomorrow. I am going to stop the patient's Pravachol because it can cause muscle toxicity and enhance the risk of this occurring with daptomycin. I am going to repeat the patient's blood cultures. The patient's daughter also requested physical therapy for the patient. DISCUSSION: The patient is unable provide a history. The history was taken from the patient's daughter. Approximately 10 days ago, the patient developed an altered mental status. She has become bedridden. She could not walk and she is unable to eat. The patient's blood cultures are growing methicillin-resistant Staphylococcus aureus. The urine culture grew E. coli. The patient's chest x-ray showed pulmonary venous congestion. CT scan of the head showed no abnormality. A transthoracic echocardiogram showed no vegetation or pericardial effusion. PAST MEDICAL HISTORY/REVIEW OF SYSTEMS: This was unable to be obtained from the patient. The daughter said that before the present illness, her mother was very active. When she did walk, she used a walker but other than that, she was very active and was not complaining of any particular pain. 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 PREVIOUS HOSPITALIZATIONS AND OPERATIONS: The patient has had labor and deliveries, bilateral total knee arthroplasties, and wrist surgery. PRESENT ILLNESS: The patient's laboratory studies today show a CBC with a white count of 14,270, hemoglobin 10.3, and platelet count of 193,000. The patient's creatinine is 1.0. GFR is 53. Glucose was 113. Liver function studies are normal. The patient's swab for influenza was negative. The patient's blood grew methicillin-resistant Staphylococcus aureus and the urine culture grew E. coli. MEDICAL DISEASES: Positive for diabetes mellitus and hypertension. INFECTIOUS DISEASE HISTORY: Positive for urinary tract infection. FAMILY HISTORY: Positive for hypertension, myocardial infarction, and cancer. SOCIAL HISTORY: [place] She is a . She lives with her brother. ALLERGIES: She is allergic to oxycodone. HOME MEDICATIONS: Include the following: Tylenol with codeine, Eliquis, buspirone, Celexa, diltiazem, latanoprost, Namenda, Starlix, Pravachol, and Desyrel. PHYSICAL EXAMINATION: Vital Signs: Temperature is 98.6 degrees, pulse 95, respirations 30, blood pressure 107/63. General: This is an ill-appearing, elderly female. She is in no acute distress. Head, Eyes, Ears, Nose, and Throat: No drainage noted from the nose or the ears. She did not respond to verbal stimuli. I was able to see in her mouth and her tongue still had a white coating on it. Neck: No meningismus. Lungs: Clear to auscultation. Cardiovascular: Heart rate is regular. I did not hear a murmur. Abdomen: Soft and nontender. Neurologic: The patient is lethargic. She did not respond to verbal stimuli. There was no tremor. Integument: No rash noted. Bones, Joints, and Muscles: The patient's knees do not have effusions. When I move them, it did not seem to cause her pain. When I did hold her legs distal to both knees and I tried to move her leg, then she appeared to be in pain. Thank you for the consult. cc: Stew Rausch MD MTDD
--- NOTE | 2018-08-06 11:36 | PROGRESS NOTE ---
DATE: 08/06/2018 SUBJECTIVE: Today, Ms. Allen refers to be feeling the same. She has been hurting everywhere but no chest pain and no shortness of breath. OBJECTIVE: Vital Signs: Blood pressure is 107/63, pulse is 95, respirations are 30, temperature is 98.6 degrees. General Examination: Ms. Allen is an 83-year-old, morbidly obese, female. BMI is 40.4. She is in bed. She is not in any cardiopulmonary distress. HEENT: Mucosa is pink and moist. Anicteric. Acyanotic. Neck: Supple. Chest : Good air entry bilaterally. There are some distant crackles posteriorly. Cardiovascular: Irregularly irregular. There is a 2/6 murmur radiating to the neck and a 3/6 TR murmur. GI: Abdomen is soft, nontender. Bowel sounds present. No hepatosplenomegaly. Extremities: No pedal edema. There are bilateral knee surgical scars consistent with previous knee surgeries. ELIGIBILITY WORKER: The patient is awake, alert, and oriented. Follows basic commands. Laboratory Data: WBC is down to 14.27, hemoglobin is 10.3, platelet count of 193,000. Chemistry is also reviewed. Creatinine is down to 1.0. CURRENT MEDICATIONS: Include: 1. Ceftriaxone 1 g q.24. Today is day 2 on that. 2. Daptomycin 500 mg daily. Today is day 2. 3. Furosemide 40 mg IV daily. 4. MiraLAX. ASSESSMENT AND PLAN: 1. Sepsis with Methicillin-resistant Staphylococcus aureus assay bacteremia, unclear source. The patient has been seen by infectious disease. There is a plan to continue daptomycin for 8 weeks because of hardware in the knees. The patient's transthoracic echocardiogram was unremarkable. Cardiology has been following and there is a question if the patient should undergo a transesophageal echocardiogram. However, the length of therapy will remarkably not be different. 2. Atrial fibrillation, currently rate controlled. Patient is on Cardizem and Eliquis for stroke prophylaxis. 3. Acute kidney injury, improved. 4. Morbid obesity with a body mass index of 40.4. 5. Generalized weakness and musculoskeletal pain. Physical therapy has been consulted. cc: MD JONI Mathew
[2018-08-06] MEDS: ROCEPHIN 1 GM in NS 50 ML IV SCH (16:32)
[2018-08-06] MEDS: CLINIMIX E 4.25%-5% SOLUTION 1,000 ML IV SCH (20:52)
[2018-08-06] MEDS: CUBICIN 500 MG in NS 100 ML IV SCH (20:54)
[2018-08-06] MEDS: XALATAN 0.005% OPH SOLN BOTH EYES SCH (21:01)
[2018-08-07 00:24] LABS: ALLEN TEST YES; BE 4.9 mmoll (-3.0-3.0); BLOOD TYPE ARTERIAL; HCO3-(ACT) 28.6 mmoll (20.0-26.0); METHB 1.1 % (0.0-1.5); O2(CT) 13.2 mL/dL (15.0-23.0); PO2(98.6) 62 mmHg (60-100); SAMPLE BLOOD; SAO2 91.7 % (95.0-100.0); THB 10.5 g/dL (11.5-17.4); pH(98.6) 7.26 (7.35-7.45)
[2018-08-07 00:26] LABS: MODALITY CANNULA; O2HB 88.8 % (95.0-99.0); PCO2(98.6) 75 mmHg (35-45)
[2018-08-07] MEDS: DUONEB (A & A) INH SCH ×6 (03:08→23:12)
[2018-08-07] MEDS ORDERED: OFIRMEV 1000 MG/ISOTONIC SOLN 1,000 MG/100 ML BOTTLE IV ONE (03:11)
[2018-08-07 05:17] LABS: BASO# 0.01 X1000 (0.0-0.2); BASO% 0.1 % (0.0-0.8); EOS# 0.08 X1000 (0.0-0.7); EOS% 0.8 % (0.0-10.0); HEMATOCRIT 30.8 % (37.0-47.0); HEMOGLOBIN 9.6 g/dL (12.0-16.0); IMM GRAN# 0.03 X1000 (0.0-0.04); IMM GRAN% 0.3 % (0.0-0.5); LYMPH# 0.88 X1000 (1.2-3.4); LYMPH% 8.9 % (20.5-51.1); MCH 32.2 PG (27-31); MCHC 31.2 g/dL (33-37); MCV 103.4 FL (81-99); MONO# 0.63 X1000 (0.11-0.59); MONO% 6.4 % (1.7-9.3); MPV 12.2 FL (7.4-10.4); NEUT# 8.29 X1000 (1.4-6.5); NEUT% 83.5 % (42.2-75.2); PLT 179 X1000 (130-400); RBC 2.98 XMIL (4.2-5.4); RDW 13.6 % (11.5-14.5); WBC 9.92 X1000 (4.8-10.8)
--- NOTE | 2018-08-07 05:45 | Diag Imaging Result Doc PS360 ---
EXAM: CHEST-PORTABLE HISTORY: Labored breathing TECHNIQUE: Chest single view COMPARISON: 08/04/2018 FINDINGS: Poor inspiratory effort. There is pulmonary edema and there may be underlying infiltrates throughout both lungs. Heart remains enlarged. Questionable small pleural effusions. IMPRESSION: Mild interval worsening Electronically signed by Nathan Bullock 08/07/2018 5:43 AM
[2018-08-07] MEDS: HUMULIN R SUBQ SCH ×4 (06:07→20:42)
[2018-08-07 06:08] LABS: ALLEN TEST YES; BE 5.1 mmoll (-3.0-3.0); BLOOD TYPE ARTERIAL; HCO3-(ACT) 28.9 mmoll (20.0-26.0); METHB 0.9 % (0.0-1.5); MODALITY BI PAP; O2(CT) 13.4 mL/dL (15.0-23.0); O2HB 95.9 % (95.0-99.0); PO2(98.6) 94 mmHg (60-100); SAMPLE BLOOD; SAO2 98.9 % (95.0-100.0); THB 9.8 g/dL (11.5-17.4); pH(98.6) 7.39 (7.35-7.45)
[2018-08-07 06:11] LABS: PCO2(98.6) 51 mmHg (35-45)
[2018-08-07 06:19] LABS: ALB/GLOB RATIO 0.5; ALBUMIN 1.9 g/dL (3.5-5.0); CALCIUM 8.6 mg/dL (8.8-10.2); CREATININE 1.2 mg/dL (0.5-0.9); POTASSIUM 5.6 mmol/L (3.5-5.1); TOTAL BILIRUBIN 0.38 mg/dL (0.20-1.00); TOTAL PROTEIN 5.8 g/dL (6.3-8.3)
--- NOTE | 2018-08-07 06:41 | INFECTIOUS DISEASE PROGRESS NO ---
DATE: 08/07/2018 PRESENT ILLNESS: The patient has a methicillin-resistant Staphylococcus aureus bacteremia, the origin of which I am uncertain. It is a possibility that she has endocarditis and also it is a possibility that her prosthetic knee joints could become infected from the bacteremia. The patient has oral candidiasis and she also has an E. coli urinary tract infection. MEDICATIONS: Currently, the patient is on her third day of Rocephin and daptomycin. PHYSICAL EXAMINATION: Vital Signs: Last night, the patient had a spike in her fever to 101.3 degrees, pulse is 65, respirations 18, blood pressure 112/62. General: This is an ill-appearing, elderly female. She seems to have labored breathing. Head, Eyes, Ears, Nose, and Throat: No drainage is noted from the nose or ears. Patient has a BiPAP mask on. Neck: No stiffness. Lungs: Clear to auscultation. Cardiovascular: Heart rate is irregular. Abdomen: Soft and nontender. Extremities: Legs are edematous. They are not erythematous. Both knees do not have an effusion. When I lift her legs, the patient seems to have pain. Neurologic: The patient has a depressed level of consciousness. She does not respond to verbal stimuli. There is no tremor. Integument: There are some erythematous areas with small pustules. LAB AND X-RAY: The chest x-ray shows pulmonary edema with possible underlying infiltrates. The CBC shows a white count of 9920, hemoglobin 9.6, and platelet count 179,000. The creatinine is 1. GFR is 53. Liver function studies are normal. Repeat blood cultures are pending. ASSESSMENT AND PLAN: The patient has a methicillin-resistant Staphylococcus aureus bacteremia, an Escherichia coli urinary tract infection, and oral candidiasis. For now, I am going to continue the patient's current antimicrobial regimen, namely Rocephin and daptomycin. I am going to add rifampin for hopefully more enhanced antibiotic treatment of 0methicillin-resistant Staphylococcus aureus bacteremia. COMORBIDITIES: She is elderly. She has diabetes mellitus. cc: Stew Rausch MD
[2018-08-07] MEDS: RIFAMPIN 600 MG in NS 100 ML IV SCH (07:32)
--- NOTE | 2018-08-07 08:10 | EKG Report ---
Test Performed on : 08/07/2018 00:01:24 AM Test Reason : Tachycardia Blood Pressure : / mmHG Vent. Rate : 130 BPM Atrial Rate : 122 BPM P-R Int : 000 ms QRS Dur : 078 ms QT Int : 308 ms P-R-T Axes : 000 107 042 degrees QTc Int : 453 ms Atrial fibrillation. with rapid ventricular response. Rightward axis Abnormal ECG When compared with ECG of 29-JUL-2018 12:18, No significant change was found Confirmed by Anil LIPSCOMB, Anoop Iqbal ([id number]) on 08/07/2018 8:53:14 AM
[2018-08-07] MEDS: MIRALAX PO SCH (08:38)
[2018-08-07] MEDS: COLACE PO SCH ×3 (08:39→20:45)
[2018-08-07] MEDS: ELIQUIS PO SCH ×3 (08:39→20:46)
[2018-08-07] MEDS: CELEXA PO SCH (08:39)
[2018-08-07] MEDS: LASIX IV SCH (08:39)
[2018-08-07] MEDS: CARDIZEM CD PO SCH (08:39)
[2018-08-07] MEDS: MYCOSTATIN SUSP PO SCH ×4 (08:44→20:42)
[2018-08-07] MEDS: ALBUMIN 25% IV SCH (09:35)
[2018-08-07] MEDS ORDERED: DULCOLAX PR ONE (10:25)
[2018-08-07] MEDS ORDERED: CALCIUM GLUCONATE 1 GM in NS 50 ML IV ONE (10:36)
[2018-08-07] MEDS ORDERED: ALBUTEROL 0.5% INH CONC FOR HYPERKALEMIA INH ONE (10:36)
[2018-08-07] MEDS ORDERED: KAYEXALATE PO ONE (10:37)
[2018-08-07] MEDS ORDERED: ALBUTEROL 0.5% INH CONC FOR HYPERKALEMIA ONE (10:53)
--- NOTE | 2018-08-07 11:12 | PROGRESS NOTE ---
DATE: 08/07/2018 SUBJECTIVE: This morning, Ms. Allen is under a BiPAP. I understand she had a very rough night. She was hypoxemic and had to be put on a BiPAP. She was also febrile. The night hospitalist team had to re-evaluate her. OBJECTIVE: Vital Signs: Blood pressure is 115/50, pulse is 82, respirations are 11, temperature is 98.9 degrees. Of note, the patient had a temperature of 101.3 degrees early this morning. General Examination: Ms. Allen is an 83-year-old, female. She was in bed under the BiPAP. Seems to be synchronizing well with it. HEENT: Mucosa was pink and moist. Anicteric. Acyanotic. Neck: Supple. Chest: Air entry was bilaterally reduced. A few distant crackles posteriorly. Cardiovascular: Irregularly irregular. There was a 2/6 murmur radiating to the neck and a 3/6 TR murmur. Abdomen: Soft, distended, but nontender. Bowel sounds were present but hypoactive. No hepatosplenomegaly. Extremities: No pedal edema. Distal pulses were present. Musculoskeletal: There were scars on both knees suggestive of bilateral knee replacement. FREIGHT BREAKER: The patient was drowsy but easily arousable and will follow basic commands. Laboratory Data: WBC is 9.92, hemoglobin is 9.6, platelet count of 179,000. PH is 7.39, pCO2 is 51. It was 75 yesterday. PaO2 is 94. This was on the BiPAP. Sodium is 134, potassium is 5.6, chloride is 98, BUN went up to 63, creatinine is 1.2, albumin is 1.9. MEDICATIONS: The patient's current medications have been reviewed. She is on: 1. Eliquis 5 mg b.i.d. 2. Ceftriaxone 1 g q.12. Today is day 3. 3. Daptomycin 500 q.24. Today is day 3. 4. Lasix 40 mg IV daily. 5. Rifampin 600 IV q.24 was started today. ASSESSMENT: 1. Methicillin-resistant Staphylococcus aureus bacteremia with sepsis of unclear source. Infectious disease is on board. There is repeat culture pending. There is a concern for Endocarditis. There is recommendation for intravenous antibiotics for a total of 8 weeks because of hardware in the knees. 2. Atrial fibrillation, currently rate controlled. Patient is on Cardizem and Eliquis. 3. Acute kidney injury, stable. 4. Generalized weakness and deconditioning. 5. Hyperkalemia. We will give the patient a one time dose of calcium gluconate , do a nebulization, and a one time dose of Kayexalate. We will repeat the BMP for later this afternoon. 6. Protein calorie malnutrition. Albumin is 1.9. The patient is on low Clinimix. We will give the patient albumin to also help with the fluid status. 7. Altered mental status. I think patient does have an underlying dementia which potentially has gotten slightly worse because of an ongoing sepsis induced encephalopathy. There is discussion with neurology to see if they would do a lumbar puncture. 8. Acute hypoxemic and hypercarbic respiratory failure. The patient is currently on BiPAP. Of note, she is Do Not Resuscitate level 1. PLAN: In general, Ms. Allen was initially admitted to [facility] under Dr. Rob on 07/26/2018. She was subsequently transferred to [facility] on 08/05/2018 for a higher level of care. Over here, she has been seen by infectious disease and some changes have been done to her antibiotics. The patient was placed on BiPAP last night because of acute hypoxemic and hypercarbic respiratory failure. I have spoken extensively with the daughter. We have also gone over the fact that Ms. Allen is critically sick and her condition seems to be getting worse. Her overall prognosis is poor. cc: Harley Hurtado MD Addendum: 1-MRI report today: Tiny areas of increased signal on the diffusion images with no corresponding abnormality on the other images. These are nonspecific. If there is a concern for tiny embolic infarcts, further workup is recommended. 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 This may represent a ruptured chordae versus an endocardial vegetation. 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 [facility]
--- NOTE | 2018-08-07 11:59 | INFECTIOUS DISEASE PROGRESS NO ---
DATE: 08/07/2018 ADDENDUM REPORT I just talked on the phone with Dr. Rob, and he informed me that the patient came to the emergency room a few times before she was admitted and at one of the times, she had an IV that caused her to have phlebitis in her arm. Most likely, this was where the patient's Staph aureus bacteremia arose from. cc: Stew Rausch MD
--- NOTE | 2018-08-07 12:46 | Diag Imaging Result Doc PS360 ---
EXAM: MRI BRAIN W/O CONTRAST HISTORY: AMS, sepsis; r/o stroke TECHNIQUE: MRI brain without contrast. Axial, sagittal, and coronal images obtained in multiple sequences. COMPARISON: None. FINDINGS: There is diffuse atrophy. No hydrocephalus. There are scattered tiny areas of increased signal on the diffusion images. No large infarct. No prominent microvascular ischemic changes. No mass or midline shift. No epidural or subdural fluid collection. Normal orbits. No sinus opacification. No air-fluid levels. IMPRESSION: 1.Atrophy 2.Tiny areas of increased signal on the diffusion images with no corresponding abnormality on the other images. These are nonspecific. If there is a concern for tiny embolic infarcts, further workup is recommended. Electronically signed by Nathan Bullock 08/07/2018 12:44 PM
[2018-08-07 14:51] LABS: CALCIUM 8.8 mg/dL (8.8-10.2); CREATININE 1.2 mg/dL (0.5-0.9); POTASSIUM 4.7 mmol/L (3.5-5.1)
[2018-08-07] MEDS: ROCEPHIN 1 GM in NS 50 ML IV SCH (16:57)
--- NOTE | 2018-08-07 17:47 | PROGRESS NOTE ---
DATE: 08/07/2018 SUBJECTIVE: The patient had a difficult night. She had worsened respiratory status and was placed on BiPAP. She had fever. She was apparently more drowsy this morning but that has improved, and when I saw her today, she was awake and much more alert. She is being treated for MRSA bacteremia with sepsis. There was consideration for a lumbar puncture to be performed to rule out concomitant MRSA meningitis. Her T-max is 101.3, currently afebrile. Blood pressure over the last 24 hours has ranged 95 to 115 systolic over 30 to 60 diastolic. Pulse anywhere from 65 to 120. OBJECTIVE: Ms. Allen is supine in bed, awake, with eyes open. She regards as I enter the room. She knows her location, her family members, and the month. She also knows the president. She did not answer other orientation questions correctly. She follows simple commands consistently. Did not follow a complex command correctly. She is reasonably attentive during my time at the bedside and actually said a couple of sentences spontaneously. Family notes that she currently is much better than earlier. Gaze is conjugate. Ocular movements are full. Face is symmetrical and equal. Tongue is midline. Strength testing shows at least 4/5 strength bilaterally and symmetric in the upper extremities and lower extremities. She is at least minimally 3/5. She wiggles her toes easily. She responds to light noxious in the extremities equally. LABORATORY DATA: White count has normalized as of today. PT a couple of days ago was 21.3 with an INR of 1.7. Blood gas drawn overnight with a pH of 7.26, pCO2 75, pO2 62. Sodium 135, BUN 67, which is trending up, creatinine 1.2, trending up. Blood sugars reviewed. Influenza A and B negative. MRI of the brain noncontrast was personally reviewed. There are some scattered tiny areas of increased signal on diffusion images. Radiology has read as no definite corresponding abnormality on other sequences. If concern for tiny embolic infarcts, further workup is recommended. ASSESSMENT AND PLAN: Global encephalopathy, multifactorial, with contributions from sepsis, respirations status, and renal failure. This may be superimposed upon reported mild baseline dementia. I have ordered an MRI today which showed some questionable tiny areas of scattered infarct. I do not believe that these are related to mental status changes. At this point, I think the risks of lumbar puncture currently outweigh the potential benefit. I would be concerned about discontinuing her Eliquis anticoagulation at this point, and the bleeding risk is present. If concern of meningitis remains, I would recommend empiric therapy. I understand that she likely will require extended therapy regardless due to her prosthetic knees. cc: Kylie Cruz MD MTDD
--- NOTE | 2018-08-07 17:50 | ECHO REPORT ---
ORDER DATE: 08/07/2018 INTERPRETING PHYSICIAN: Dr. Pope REQUESTING PHYSICIAN: CLINICAL INDICATIONS: This is an 83-year-old female with dyspnea, septicemia, Staphylococcus aureus. Limited study. M-MODE MEASUREMENTS: Right ventricle: cm. Left ventricle end diastole: cm. Left ventricle end systole: cm. Posterior wall: cm. Interventricular septum: cm. Left atrium: cm. Aortic root: cm. SUMMARY OF 2-DIMENSIONAL IMAGIN. Right ventricle appears to be mildly enlarged. 2. Left ventricle shows good contractility. Ejection fraction visually estimated at 65% to 70%. 3. Mitral annulus shows dense calcification. There is a mobile mass protruding during systole into the left atrium. This may represent either endocardial vegetation or a ruptured chordae. Color flow mapping of mitral valve reveals moderate to severe degree of regurgitation. 4. This study is difficult. 5. A moderate pericardial effusion appears to be present. 6. There is moderate tricuspid regurgitation. CONCLUSIONS: In summary, this limited echocardiographic study shows: 1. Excellent left ventricular systolic function. 2. 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 This may represent a ruptured chordae versus an endocardial vegetation. 3. There is dilatation of the left atrium. 4. There is a moderate pericardial effusion. 5. The inferior vena cava is also dilated. That suggests elevation of right atrial pressure. 6. Consideration may be given at obtaining a transesophageal echocardiogram for definitive diagnosis. My first suspicion is that this is a ruptured chordae. cc: MD Allison Fontanez PA MTDD
[2018-08-07] MEDS: DEMEROL IV PRN ×2 (18:25→22:53)
[2018-08-07] MEDS: CUBICIN 500 MG in NS 100 ML IV SCH (20:41)
[2018-08-07] MEDS: CLINIMIX E 4.25%-5% SOLUTION 1,000 ML IV SCH (20:41)
[2018-08-07] MEDS: XALATAN 0.005% OPH SOLN BOTH EYES SCH (20:42)
[2018-08-08] MEDS: DUONEB (A & A) INH SCH ×5 (03:23→19:28)
[2018-08-08 05:47] LABS: ALB/GLOB RATIO 0.7; ALBUMIN 2.6 g/dL (3.5-5.0); CALCIUM 8.3 mg/dL (8.8-10.2); CREATININE 1.1 mg/dL (0.5-0.9); POTASSIUM 5.1 mmol/L (3.5-5.1); TOTAL BILIRUBIN 0.91 mg/dL (0.20-1.00); TOTAL PROTEIN 6.2 g/dL (6.3-8.3)
[2018-08-08 05:48] LABS: BASO# 0.01 X1000 (0.0-0.2); BASO% 0.1 % (0.0-0.8); EOS# 0.06 X1000 (0.0-0.7); EOS% 0.6 % (0.0-10.0); HEMATOCRIT 29.7 % (37.0-47.0); HEMOGLOBIN 9.3 g/dL (12.0-16.0); IMM GRAN# 0.03 X1000 (0.0-0.04); IMM GRAN% 0.3 % (0.0-0.5); LYMPH# 0.65 X1000 (1.2-3.4); LYMPH% 6.7 % (20.5-51.1); MCH 31.8 PG (27-31); MCHC 31.3 g/dL (33-37); MCV 101.7 FL (81-99); MONO# 0.48 X1000 (0.11-0.59); MONO% 4.9 % (1.7-9.3); MPV 12.3 FL (7.4-10.4); NEUT# 8.51 X1000 (1.4-6.5); NEUT% 87.4 % (42.2-75.2); PLT 181 X1000 (130-400); RBC 2.92 XMIL (4.2-5.4); RDW 13.4 % (11.5-14.5); WBC 9.74 X1000 (4.8-10.8)
[2018-08-08] MEDS: HUMULIN R SUBQ SCH ×3 (06:09→15:37)
[2018-08-08] MEDS: RIFAMPIN 600 MG in NS 100 ML IV SCH (06:28)
[2018-08-08 07:13] LABS: LYMPHS 9 % (21-51); MONO 3 % (1-9); SEGS 88 % (42-75)
--- NOTE | 2018-08-08 08:37 | INFECTIOUS DISEASE CONSULT REP ---
DATE: 08/08/2018 PRESENT ILLNESS: The patient has a methicillin-resistant Staph aureus bacteremia which could have arisen from an IV site phlebitis. An echocardiogram has been done, and there is a mobile mass seen which could be vegetation from endocarditis. I think most likely this is the diagnosis given the fact that the patient has a methicillin-resistant Staph aureus bacteremia. Even if the mass is not a vegetation it most certainly has become infected. The patient also has an Escherichia coli urinary tract infection. The patient has oral Candidiasis. MEDICATIONS: This is the 4th day of treatment with Rocephin and daptomycin, and the first day of treatment with rifampin. PHYSICAL EXAMINATION: Vital Signs: Temperature is 99.6, pulse 108, respirations 18, blood pressure 111/85. General: Today, the patient seems more alert and is even talking. Head/eyes/ears/nose/throat: There is no drainage from the nose or ears. The patient does not have any white patches on her tongue. Neck: No stiffness. Lungs: Clear to auscultation. Cardiovascular: Heart rate is irregular. Abdomen: Soft and nontender. Extremities: The patient's legs are edematous but not erythematous. Both knee joints do not have fluid. Neurologic: As mentioned above, the patient is more alert today, and she is even talking little bit. LABORATORY DATA AND X-RAY: The chest x-ray showed pulmonary edema with possible underlying infiltrates. The echocardiogram showed a mobile mass which could be vegetation from endocarditis. The CBC for today shows a white count of 9740, hemoglobin 9.3, and platelet count 181,000. Creatinine is 1.1. GFR is 48. Liver function studies are normal. Repeat blood cultures done on 08/06/2018 are negative. Therefore, the patient's treatment with antibiotics is actually 2 days because day 1 is the first day of treatment when the blood cultures are negative. ASSESSMENT AND PLAN: The patient has methicillin-resistant Staph aureus bacteremia and most likely endocarditis as well. She also has an Escherichia coli urinary tract infection and oral Candidiasis. I discussed with the family about the outlook, that if the patient did indeed have endocarditis, that the patient's likelihood of surviving it without surgery would be very small, and the patient is definitely not a candidate to have valve replacement. Regarding urinary tract infection and the oral Candidiasis, I plan to continue the Rocephin. COMORBIDITIES: She is elderly, and she has diabetes mellitus. cc: Stew Rausch MD MTDD
[2018-08-08] MEDS: ALBUMIN 25% IV SCH (08:46)
[2018-08-08] MEDS: COLACE PO SCH (08:50)
[2018-08-08] MEDS: ELIQUIS PO SCH (08:50)
[2018-08-08] MEDS: CELEXA PO SCH (08:50)
[2018-08-08] MEDS: CARDIZEM CD PO SCH (08:51)
[2018-08-08] MEDS: LASIX IV SCH (08:51)
[2018-08-08] MEDS: MIRALAX PO SCH (08:51)
[2018-08-08] MEDS ORDERED: LOVENOX SUBQ SCH (09:00)
--- NOTE | 2018-08-08 09:36 | PROGRESS NOTE ---
DATE: 08/08/2018 SUBJECTIVE: Patient reports feeling fine, not requiring nasal cannula at 2 L/ minute. She reports she has slept good. OBJECTIVE: Vital Signs: Temperature 100 degrees, heart rate 133, respiratory rate 22, blood pressure 113/65, O2 saturation 100% on Venturi mask. General Examination: This is an 83-year- old, female lying in bed, in no acute distress. HEENT: Head is normocephalic, atraumatic, mucous membranes dry. Neck: No JVD noted. No carotid bruits. No lymphadenopathy. No thyromegaly. Cardiovascular: Irregularly irregular heart rhythm with 2/6 aortic systolic murmur radiating to the neck. Respiratory: There are still a few crackles present in both bases, but patient is not using any accessory muscles or having work of breathing. Abdomen: Soft. A little bit distended, but nontender to palpation. Bowel sounds present. No organomegaly. Extremities: No clubbing, cyanosis, or edema. Peripheral pulses present in both legs. There is a scar in both knees suggestive of bilateral knee replacement. Neurological: Patient is drowsy like yesterday, but definitely easily arousable. She is able to talk to me, follows basic commands. LABORATORY DATA: White cell count 9.74, hemoglobin 9.3, hematocrit 29.7, platelets 181,000. Creatinine 1.1. Sodium 134. Calcium 8.3. ASSESSMENT AND PLAN: 1. MRSA bacteremia with sepsis of unclear source. Dr. Rausch from Infectious Disease is following this patient. Currently, the patient is on daptomycin. Also the patient is on ceftriaxone as well, day #4 for both medications. I think because of hardware she has in both knees, recommendation from Infectious Disease is to do 8 weeks of antibiotics intravenously. There has been a concern for endocarditis, so limited echo done yesterday showed highly mobile mass attached to the septal leaflet of the mitral valve that according to Cardiology may represent ruptured chordae. In any case, there is a recommendation for a TASNEEM , but at this point, we will see how this patient does in order to do that exam. On the other hand, I do not think if we confirm results on endocarditis, it is going to change the length of treatment for this patient. We will continue to monitor this patient closely. In case it is a ruptured chordae this patient will start declining quickly. 2. Atrial fibrillation with RVR. The heart rate during the last 24 hours has been getting higher. Currently, patient is receiving Cardizem CD 120 that I think we may need to increase to 180 and see how this patient does. 3. Acute kidney injury, resolved. 4. Hyperkalemia, resolved. 5. Protein-calorie malnutrition. Patient is on Clinimix and Lipids. We will continue with same management. 6. Altered mental status. At this time, patient is stable. We know that she has underlying dementia and also she has MRSA bacteremia. At this point, we will continue to monitor this patient closely. 7. Acute hypoxemic and hypercapnic respiratory failure. The patient has been requiring BiPAP yesterday and today she is requiring 2 L of oxygen by nasal cannula. At this point, we will continue to monitor this patient closely. 8. Disposition. Patient is going to stay in the CIC unit. Her prognosis is guarded. We will continue with same management. cc: Igor Snell MD MTDD
[2018-08-08] MEDS: OFIRMEV 1000 MG/ISOTONIC SOLN 1,000 MG/100 ML BOTTLE IV PRN ×2 (09:57→17:54)
[2018-08-08] MEDS: MYCOSTATIN SUSP PO SCH ×3 (10:39→17:03)
[2018-08-08] MEDS: DEMEROL IV PRN (12:09)
[2018-08-08] MEDS ORDERED: LANOXIN PO SCH (13:15)
[2018-08-08] MEDS ORDERED: LANOXIN IV SCH (14:00)
--- NOTE | 2018-08-08 14:06 | CARDIOLOGY PROGRESS NOTE ---
DATE: 08/08/2018 SUBJECTIVE: Ms. Allen continues to be somewhat confused. She is on BiPAP. She has a somewhat labored breathing presently. Family says she is in and out as far as alertness goes. OBJECTIVE: Vital Signs: Physically, last temperature was 101.3 degrees on the at 3 a.m. Her most recent high temperature was 100.0 degrees this morning at 8 o'clock. Her heart rates have been elevated anywhere from the low 100s to 130s recently. Blood pressure is 137/94. General: She is in moderate respiratory distress. She is currently on BiPAP. She is confused. Cardiovascular: She sounds to be in a tachycardic and regular rhythm. She has a difficult to auscultate heart due to breath sounds, but sounds to have a systolic murmur at the apex. Chest: Her chest exam is difficult. She is tachypneic. Sounds coarse somewhat diffusely. Extremities: She has warm and well perfused lower extremities. Abdomen: Her abdomen is soft and nontender. PERTINENT DATA: Her white count is 9.7, hematocrit 29, platelet count is 181. Her sodium is 134, potassium 5.1. BUN 68, creatinine is 1.1. Her albumin is 2.6 today. ASSESSMENT: Ms. Allen is an 83-year-old female, who has what appears to be endocarditis, unclear of the exact etiology of the staph infection that resulted in this, but her most recent echo suggested an echogenic mass adherent to the mitral valve that could possibly be a ruptured chorda versus vegetation. PLAN: She is being treated with antibiotics. She is too high risk to have a transesophageal echo as that would likely result in intubation. We will try to adjust medications by adding in ISDN at 5 t.i.d. I will try giving her an additional dose of Lasix as I believe she likely has a pulmonary edema resulting in her tachypnea. I will also start her on some digoxin to try to help control her heart rate. The patient certainly is quite ill with multiple medical issues presently. Family has been in discussions with hospice and may proceed that route later on this week. We will check a basic metabolic panel, as well as a magnesium level in the morning. cc: Raymond Coleman MD
[2018-08-08] MEDS ORDERED: LASIX IV ONE (15:00)
--- NOTE | 2018-08-08 15:29 | PROGRESS NOTE ---
DATE: 08/08/2018 SUBJECTIVE: No major overnight events. T-max is 100.0, current 99.7. Blood pressure 111 to 137 systolic. Pulse 108 to 130s. Respirations 24. Oxygen saturation 97% on Venturi mask. SUBJECTIVE: Ms. Allen is supine in bed on the Venturi mask. She appears to be resting with her eyes closed when I enter the room. She is easily awakened and regards. She follows some simple commands. She answers some simple questions using one word. She states her first name and location. She asked for some water. Her gaze is conjugate and forward. She is seen to spontaneously look fully to the left and to the right during my encounter. Her face appears to be symmetric with equal activation. 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 Plantar responses are silent. There is no clonus. She wiggles her toes and ankles for me. During my encounter she is reasonably attentive but does occasionally require some tactile stimulation to re-alert. IMAGING: Repeat transthoracic echocardiogram performed yesterday afternoon showed a highly mobile mass attached to the septal leaflet of the mitral valve, which may represent a ruptured chordae versus an endocardial vegetation. There is a dilated left atrium. There is overall concern that this may be a ruptured chordae and recommendation of TASNEEM to be considered for definitive diagnosis. LABORATORY DATA: White count normal again today. BUN 68 and creatinine 1.1. LFTs normal. ASSESSMENT AND PLAN: 1. Global encephalopathy, multifactorial. Continue treatment of her multiple medical issues. 2. Questionable tiny ischemic areas versus nonspecific findings on MRI. No focal exam findings. Continue to monitor. 3. Atrial fibrillation with rapid ventricular response, on Eliquis 5 orally twice a day and Cardizem. 4. 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 This is being treated per Infectious Disease. 5. 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 TASNEEM was recommended. cc: Kylie Cruz MD MTDD
[2018-08-08] MEDS ORDERED: ROCEPHIN ONE (15:50)
[2018-08-08] MEDS: ROCEPHIN 1 GM in NS 50 ML IV SCH (15:55)
[2018-08-08] MEDS ORDERED: ISORDIL PO SCH (17:00)
[2018-08-08] MEDS ORDERED: ATROPINE 1 % OPHTH SOLN SL PRN (20:31)
[2018-08-08] MEDS: ATIVAN IV PRN ×2 (21:24→23:02)
[2018-08-08] MEDS: MORPHINE IV PRN ×2 (21:25→23:02)
[2018-08-08] MEDS: XALATAN 0.005% OPH SOLN BOTH EYES SCH (22:13)
[2018-08-08] MEDS ORDERED: TRANSDERM-SCOP TD SCH (23:00)
[2018-08-09] MEDS: MORPHINE IV PRN ×4 (02:14→11:19)
[2018-08-09] MEDS: ATIVAN IV PRN ×4 (02:15→11:19)
[2018-08-09] MEDS ORDERED: CARDIZEM CD PO SCH (09:00)
--- NOTE | 2018-08-09 09:49 | PROGRESS NOTE ---
DATE: 08/09/2018 SUBJECTIVE: Ms. Allen is an 83-year-old, female. She was admitted on 07/26/2018 and has been treated for MRSA bacteremia with sepsis from an unclear source. The patient's nurse (Isamar) last night at approximately 8:00 p.m. did notify me that the patient's power-of- attorney general, which is her granddaughter (Nicolasa Acosta) as well as the patient's two daughters and two sons were all at bedside. She stated that they have decided to withdraw all current treatment and would like to make Ms. Allen comfort measures only. The patient's power-of- attorney general does have paperwork and ID available to confirm that she is able to make this decision for the patient. I did go to the bedside to speak with the patient's [id number] (Nicolasa Acosta) as well as the rest of the family. They were all in agreement of withdrawing current treatment and placing the patient on comfort measures only. They requested that the BiPAP also be removed and that she only be placed on supplemental oxygen via nasal cannula. They only want medicines of morphine and Ativan given. The patient at this time will open her eyes to verbal and light tactile stimulation, but other than this she is nonverbal. She is not answering questions and has been lethargic. Dr. Portillo, the attending physician for the Hospitalist Service, was made aware of the patient's medical history, current diagnoses, current condition, as well as the family's wishes and is honoring the patient's wishes. Orders for comfort measures only have been placed in the computer as well as p.r.n. morphine, Ativan, and scopolamine patch. All other treatment orders have been discontinued per the family's request. CODE STATUS: Patient is currently is a DNR Level I, comfort measures only. Dictated by ALKA Jimenez for Marcus Portillo MD cc: Marcus Portillo MD
--- NOTE | 2018-08-09 10:19 | PROGRESS NOTE ---
DATE: 08/09/2018 Family has made a decision to provide comfort measures only. I discussed that briefly with family at the bedside this morning. Dr. Cruz had been following her for Neurology and Neurology will sign off now and be glad to see Gabrielle Allen again if requested. cc: Bre Castro III, MD MTDD
[2018-08-09 11:25] VITALS: BP 75/30
--- NOTE | 2018-08-10 09:11 | DISCHARGE SUMMARY ---
ADMISSION DATE: 07/26/2018 DISCHARGE DATE: 08/09/2018 The patient on 08/09/2018 at 11:31 a.m. CONSULTATIONS: 1. Dr. Raymond Coleman of Cardiology. 2. Dr. Stew Rausch with Infectious Disease. 3. Dr. Kylie Cruz with Neurology. PERTINENT PROCEDURES: 1. Abdomen and pelvis CT with anasarca, diverticulosis coli, slightly distended urinary bladder, mild constipation. 2. Head CT with no hemorrhage. 3. Echocardiogram showed an ejection fraction of 65%, posterior pericardial effusion measuring 1.5 cm anteriorly. No evidence of tamponade. 4. Chest CT with atelectasis versus pneumonia, particularly in the left lower lobe with bilateral pleural effusion. 5. Brain MRI with atrophy, tiny areas of increased signal of diffusion images with no corresponding abnormality on other images. This is nonspecific. There was concern for tiny embolic infarct. Further workup is recommended. 6. Limited echocardiogram showed an ejection fraction of 65% to 70 percent, with a mobile mass protruding during systole into the left atrium. It represents either endocardial vegetation or a ruptured chordae. Moderate to severe degree of regurgitation, pericardial effusion. DISCHARGE DIAGNOSES: 1. Probable endocarditis, unclear exact etiology of Staphylococcal infection that resulted in this but her most recent echo suggested echogenic mass adherent to the mitral valve could also possibly represent a ruptured chordae versus vegetation. She was treated with antibiotics per Infectious Disease. She was too high risk to have a TASNEEM, would likely result in intubation. 2. Questionable tiny ischemic areas versus nonspecific findings on MRI. Followed by Neurology. 3. Atrial fibrillation with rapid ventricular response, again followed by Cardiology. 4. Methicillin-resistant Staphylococcus aureus bacteremia with sepsis, question of contaminant, methicillin-resistant Staphylococcus aureus meningitis. The patient was being treated with per Infectious Disease. 5. Global encephalopathy, multifactorial. Family made the patient Do Not Resuscitate level 1 and made the decision to provide comfort measures only and was placed on p.r.n. morphine, Ativan, scopolamine patch. Ms. Allen succumbed to her illness on 08/09/2018 11: 31 a.m. 6. Acute kidney injury had resolved. 7. Hypokalemia resolved. 8. Protein calorie malnutrition. 9. Acute hypoxemic and hypercapnic respiratory failure. She was requiring BiPAP. 10. Pulmonary edema. The patient was given an additional doses of Lasix as well as added ISDN. We were trying some digoxin to control her heart rate. HOSPITAL COURSE: Briefly, Alejandro Andrew is an 83-year-old female who was admitted on 07/26/[address] Rob at [facility] with complaints per the family of generalized malaise, confusion, and weakness. She also complained of some right lower quadrant pain. She has been doing well over [place] but was unwell starting the day prior to her admission. She was not getting out of bed. She was not eating well. She was noted to have anasarca on imaging as well as an Escherichia coli urinary tract infection with some concerns of possible urosepsis as well as pneumonia versus atelectasis and acute renal failure. She was treated several days at [facility] under the care of Dr. Rob with several consults. She was transferred over to [facility] on 08/04/2018 or 08/05/2018. She had 2 positive methicillin-resistant Staphylococcus aureus blood cultures. She started running fevers. Flu swabs were negative. Dr. Rob talked to Dr. Stew Rausch, who felt this could possibly be a bacterial endocarditis and switched antibiotics. She was ultimately transferred for ID, Pulmonary, Renal, and Cardiology evaluation. Her original echocardiogram showed a pleural effusion that was chronic for the patient. She was evaluated by Neurology as well. She underwent a head CT and brain MRI that showed possible tiny embolic infarct that was questionable. Her repeat limited echo showed a highly mobile mass attached to the septal leaflet of the mitral valve and appeared to be protruding into left atrium that may represent ruptured chordae versus endocardial vegetation. The family had been in talks with [facility] as well as Palliative Care and hospice. They ultimately made her a Do Not Resuscitate level 1 and on 08/09/2018 placed her on comfort measures only. They request that the BiPAP be removed and only placed on supplemental oxygen and requested only morphine, Ativan, as well as a scopolamine patch. The patient was not responding well and she remained nonverbal and lethargic. Ms. Allen succumbed to her illness on 08/09/2018 at 11:31 a.m. Dictated by ALKA Tomlinson for Igor Snell MD Addendum: Patient seen and examined by myself. Agree with ALKA note. It reflects my assessment and plan. Patient unfortunately from above conditions on 08/09/2018 at 11:31 a.m cc: MD Blayne Mackenzie MD Peter Johnson, MD Sonya M. Soliman, MD Leroy F. Harris, MD MTDD
== END 2018-08-09 11:31 | disposition expired | DRG 288 ==
LOC: P.ED 09:27 → SUATTDRO 21:39 → P.EDIPHOLD 21:39 → P.MEDSURG 23:48 → 3S 08-04 18:43
PROVIDERS: ATTEND Internal Medicine
CPT/HCPCS: 36415; 51702; 70450; 70551; 71010; 71020; 71045; 71046; 71250; 74176; 80048; 80053; 81001; 81050; 82575; 82805; 82948; 83735; 83880; 84156; 84443; 84484; 85025; 85027; 85610; 85651; 87040; 87077; 87088; 87186; 87275; 87276; 87804; 93005; 93010; 93306; 93308; 94640; 94660; 94667; 94668; 94760; 94761; 96361; 96365; 96375; 97110; 97163; 99285; A9270; C8929; J0131; J0610; J0696; J0878; J1160; J1200; J1580; J1940; J1956; J2060; J2175; J2185; J2270; J2405; J2543; J3370; J7030; J7050; P9047; Q9957; XXXXX